=== PATIENT | female | born 1975 | race African-American/Black ===

== ENCOUNTER 2018-08-26 11:41 | Emergency (ER) | payer OTHER ==
[2018-08-26 12:11] VITALS: BP 119/70; PULSE 80; RESP 20; TEMP 98.1
--- NOTE | 2018-08-26 12:36 | ED ---
Female Urogenital HPI - General Chief complaint: Urogenital Stated complaint: female gu Time Seen by Provider: 08/26/18 12:15 Source: patient Mode of arrival: ambulatory Limitations: no limitations - History of Present Illness Initial comments: 43-year-old in today for chief complaint of vaginal discharge. Patient states she has had a follow-up vaginal discharge for the past month. Patient denies any pain with sex chest hear chills night sweats she denies any significant pelvic pain. Patient states she was concerned she had subsequent infection she states she is confident that is not a sexually transmitted disease. Patient denies . She denies dysuria urgency frequency. Patient states she feels as though as her external vagina is irritated. Remaining review of systems negative. - Related Data Previous Rx's Medication Instructions Recorded Cephalexin [Keflex] 500 mg PO Q6HR 7 Days #28 cap 08/26/18 metroNIDAZOLE [Flagyl] 2,000 mg PO ONCE 1 Days #4 tab 08/26/18 metroNIDAZOLE [metroNIDAZOLE 0.75% 1 applic TOPICAL HS 5 Days #1 tube 08/26/18 Gel] Allergies Allergy/AdvReac Type Severity Reaction Status Date / Time No Known Allergies Allergy Verified 08/26/18 12:20 Review of Systems ROS Statement: Those systems with pertinent positive or pertinent negative responses have been documented in the HPI. ROS Other: All systems not noted in ROS Statement are negative. Past Medical History Past Medical History: Asthma, GERD/Reflux, Thyroid Disorder Additional Past Medical History / Comment(s): scoliosis History of Any Multi-Drug Resistant Organisms: None Reported Past Surgical History: Tubal Ligation Additional Past Surgical History / Comment(s): D&C Past Psychological History: No Psychological Hx Reported Smoking Status: Current every day smoker Past Alcohol Use History: Occasional Past Drug Use History: None Reported General Exam - General Exam Comments Initial Comments: General: The patient is awake and alert, in no distress, and does not appear acutely ill. Eye: Pupils are equal, round and reactive to light, extra-ocular movements are intact. No nystagmus. There is normal conjunctiva bilaterally. No signs of icterus. Ears, nose, mouth and throat: There are moist mucous membranes and no oral lesions. Neck: The neck is supple, there is no tenderness or JVD. Cardiovascular: There is a regular rate and rhythm. No murmur, rub or gallop is appreciated. Respiratory: Lungs are clear to auscultation, respirations are non-labored, breath sounds are equal. No wheezes, stridor, rales, or rhonchi. Gastrointestinal: Soft, non-distended, non-tender abdomen without masses or organomegaly noted. There is no rebound or guarding present. No CVA tenderness. Bowel sounds are unremarkable. Pelvic: Upon pelvic examination there is no external lesions. Rash and close eyes pink with rugated. Significant amount of discharge in the vaginal vault. It has a foul order- fishy in nature. Patient is no cervical motion or adnexal tenderness. Musculoskeletal: Normal ROM, no tenderness. Strength 5/5. Sensation intact. Pulses equal bilaterally 2+. Neurological: A&O x 3. CN II-XII intact, There are no obvious motor or sensory deficits. Coordination appears grossly intact. Speech is normal. Skin: Skin is warm and dry and no rashes or lesions are noted. Psychiatric: Cooperative, appropriate mood & affect, normal judgment. Limitations: no limitations Course Vital Signs 08/26/18 12:08 Temperature 98.1 F Pulse Rate 80 Respiratory 20 Rate Blood Pressure 119/70 O2 Sat by Pulse 100 Oximetry Medical Decision Making - Medical Decision Making 43-year-old female presenting for foul smelling discharge. On examination there is profuse discharge. She and thin. Concern for bacterial vaginosis. Patient denies concern for STI. Patient had no adnexal or cervical motion tenderness. Patient denies any constitutional symptoms. Patient was discharged appearing well with treatment of her bacterial vaginosis. Trichomonas returned later positive. Patient was called I spoke directly with Kaylie and sent a prescripting for 2g of oral Flagyl 1x dose. Patient was told to discontinue local Flagyl. Patient chlamydia and gonorrhea pending. - Lab Data Lab Results 08/26/18 08/26/18 08/26/18 Range/Units 12:50 12:50 12:50 Urine Color Yellow Urine Appearance Cloudy H (Clear) Urine pH 5.5 (5.0-8.0) Ur Specific [place] 1.029 (1.001-1.035) Urine Protein Trace H (Negative) Urine Glucose (UA) Negative (Negative) Urine Ketones Negative (Negative) Urine Blood Negative (Negative) Urine Nitrite Negative (Negative) Urine Bilirubin Negative (Negative) Urine Urobilinogen 2.0 (<2.0) mg/dL Ur Leukocyte Esterase Large H (Negative) Urine RBC 17 H (0-5) /hpf Urine WBC 133 H (0-5) /hpf Urine WBC Clumps Few H (None) /hpf Ur Squamous Epith Cells 2 (0-4) /hpf Urine Bacteria Occasional H (None) /hpf Urine Mucus Few H (None) /hpf Urine HCG, Qual Not Detected (Not Detectd) Trichomonas Ag (Rapid) Positive H (Negative) Disposition Clinical Impression: Vaginitis, Vaginal discharge, Vaginal odor, Vaginal itching Disposition: HOME SELF-CARE Instructions (If sedation given, give patient instructions): Bacterial Vaginosis (ED) Additional Instructions: Please use medication as discussed. Please follow-up with family doctor in the next 2 days. Please return to emergency room if the symptoms increase or worsen or for any other concerns. Prescriptions: metroNIDAZOLE [Flagyl] 2,000 mg PO ONCE 1 Days #4 tab Cephalexin [Keflex] 500 mg PO Q6HR 7 Days #28 cap metroNIDAZOLE [metroNIDAZOLE 0.75% Gel] 1 applic TOPICAL HS 5 Days #1 tube Is patient prescribed a controlled substance at d/c from ED?: No Referrals: None,Stated [Primary Care Provider] - 1-2 days [facility] [NON-STAFF] - 1-2 days Time of Disposition: 12:35
[2018-08-26 13:23] LABS: Appearance,Urine Cloudy (Clear); Bacteria,Urine Occasional /hpf; Bilirubin,Urine Negative (Negative); Blood,Urine Negative (Negative); Color,Urine Yellow; Glucose,Urine (UA) Negative (Negative); Ketones,Urine Negative (Negative); Leukocyte Esterase,Urine Large (Negative); Mucus,Urine Few /hpf; Nitrite,Urine Negative (Negative); PH, Urine 5.5 (5.0-8.0); Protein,Urine Trace (Negative); RBC,Urine 17 /hpf (0-5); Specific Gravity,Urine 1.029 (1.001-1.035); Squamous Epithelial Cell,Urine 2 /hpf (0-4); WBC,Urine 133 /hpf (0-5)
[2018-08-27 15:57] LABS: C. trachomatis,PCR Negative (Neg,Equiv); Chlamydia trachomatis Source Vagina; N. gonorrhoeae,PCR Negative (Neg,Equiv); Neisseria Source Vagina
== END 2018-08-26 13:20 | disposition home or self-care (01) ==
LOC: EC 11:41
DX: N76.0 Acute vaginitis (principal); A59.01 Trichomonal vulvovaginitis; F17.200 Nicotine dependence, unspecified, uncomplicated; Z98.51 Tubal ligation status
CPT/HCPCS: 81001; 81025; 87070; 87205; 87491; 87591; 87808; 99283

== ENCOUNTER → 2018-11-06 | Outpatient (CLI) | payer OTHER ==
--- NOTE | 2018-11-06 11:14 | US ---
EXAMINATION TYPE: US abdomen complete DATE OF EXAM: 11/06/2018 COMPARISON: NONE CLINICAL HISTORY: R10.2 Pelvic and perineal pain. Abdominal pain for 1 year EXAM MEASUREMENTS: Liver Length: 13.3 cm Gallbladder Wall: 0.2 cm CBD: 0.5 cm Spleen: 7.1 cm Right Kidney: 9.2 x 3.0 x 5.0 cm Left Kidney: 9.7 x 4.5 x 4.1 cm Pancreas: visualized portions appear wnl Liver: wnl Gallbladder: no evidence of stones Evidence for sonographic Galloway's sign: no CBD: wnl Spleen: appears wnl Right Kidney: no evidence of hydronephrosis Left Kidney: no evidence of hydronephrosis Upper IVC: wnl Abd Aorta: wnl The visualized liver is homogenous. The intrahepatic portion of the IVC and visualized portion of ab dominal aorta are within normal limits. There is no evidence of cholelithiasis. Common bile duct is unremarkable. The visualized portions of the pancreas are homogenous. The spleen is unremarkable. Kidneys are symmetric and free of hydronephrosis. No renal lesions are seen. IMPRESSION: Unremarkable study.
--- NOTE | 2018-11-06 11:18 | US ---
EXAMINATION TYPE: US pelvis complete transvag DATE OF EXAM: 11/06/2018 COMPARISON: NONE CLINICAL HISTORY: R10.2 Pelvic and perineal pain. Abdominal pain for 1 year. Tubal ligation. Early me nopause, LMP 6 months ago TECHNIQUE: Transvaginal (TV) and Transabdominal (TA) . Transabdominal sonographic images of the pel vis were acquired. Transvaginal sonographic images were medically necessary to better assess the fol lowing anatomy: ovaries Date of LMP: 6 months ago EXAM MEASUREMENTS: Uterus: 6.9 x 5.3 x 6.0 cm Endometrial Stripe: 0.3 cm Right Ovary: unable to visualize Left Ovary: 2.5 x 1.6 x 1.6 cm 1. Uterus: Anteverted hypoechoic area (fibroid) fundus = 2.0 x 1.5 x 1.9cm 2. Endometrium: appears wnl 3. Right Ovary: Obscured by overlying bowel gas 4. Left Ovary: possible dominant follicle = 1.5 x 0.9 x 1.5cm 5. Bilateral Adnexa: appears wnl 6. Posterior cul-de-sac: wnl Heterogeneous anteverted uterus. A 2.1 cm posterior fundal intramural fibroid suspected. No free flui d in pelvis. Right ovary cannot be identified with certainty. No suspicious adnexal masses however are present. IMPRESSION: Probable 2.0 cm posterior fundal fibroid.
== END | disposition home or self-care (01) ==
LOC: RADUSWWP 08:40
PROVIDERS: ATTEND Family Medicine
DX: R10.2 Pelvic and perineal pain (principal); R10.30 Lower abdominal pain, unspecified
CPT/HCPCS: 76700; 76830; 76856

== ENCOUNTER 2018-12-22 13:32 | Emergency (ER) | payer OTHER ==
[2018-12-22 13:37] VITALS: BP 120/80; PULSE 79; RESP 18; TEMP 97.9
--- NOTE | 2018-12-22 14:00 | ED ---
Back Pain HPI - General Chief Complaint: Back Pain/Injury Stated Complaint: Back pain Time Seen by Provider: 12/22/18 13:38 Source: patient Limitations: no limitations - History of Present Illness Initial Comments: Patient is a 43-year-old female presenting to emergency Department with complaints of low back cramping and pain since yesterday. Patient has history of scoliosis. Patient denies any trauma or falls. Patient does see an orthopedic doctor, she cannot recall their name. Patient is awaiting a callback either tomorrow or Sunday. Patient states she has been trying to move around today and pain increases with sitting or getting up from a seated position. Patient denies any numbness and tingling, saddle paresthesia, trouble with urination or bowel movements. Patient has no other complaints at this time. Patient denies fever, chills. Upon arrival to ER vital signs are stable. - Related Data Previous Rx's Medication Instructions Recorded Cephalexin [Keflex] 500 mg PO Q6HR 7 Days #28 cap 08/26/18 metroNIDAZOLE [Flagyl] 2,000 mg PO ONCE 1 Days #4 tab 08/26/18 metroNIDAZOLE [metroNIDAZOLE 0.75% 1 applic TOPICAL HS 5 Days #1 tube 08/26/18 Gel] Cyclobenzaprine [Flexeril] 5 mg PO BID PRN #15 tablet 12/22/18 Allergies Allergy/AdvReac Type Severity Reaction Status Date / Time No Known Allergies Allergy Verified 12/22/18 13:37 Review of Systems ROS Statement: Those systems with pertinent positive or pertinent negative responses have been documented in the HPI. ROS Other: All systems not noted in ROS Statement are negative. Past Medical History Past Medical History: Asthma, GERD/Reflux, Thyroid Disorder Additional Past Medical History / Comment(s): scoliosis History of Any Multi-Drug Resistant Organisms: None Reported Past Surgical History: Tubal Ligation Additional Past Surgical History / Comment(s): D&C Past Psychological History: Depression Smoking Status: Current every day smoker Past Alcohol Use History: Occasional Past Drug Use History: Marijuana General Exam - General Exam Comments Initial Comments: GENERAL: Well-appearing, well-nourished and in no acute distress. HEAD: Atraumatic, normocephalic. EYES: Pupils equal round and reactive to light, extraocular movements intact, sclera anicteric, conjunctiva are normal. ENT: TMs normal, nares patent, oropharynx clear without exudates. Moist mucous membranes. NECK: Normal range of motion, supple without lymphadenopathy or JVD. LUNGS: Breath sounds clear to auscultation bilaterally and equal. No wheezes rales or rhonchi. HEART: Regular rate and rhythm without murmurs, rubs or gallops. ABDOMEN: Soft, nontender, normoactive bowel sounds. No guarding, no rebound. No masses appreciated. : Deferred EXTREMITIES: Normal range of motion, no pitting or edema. No clubbing or cyanosis. No pain with palpation of the lumbar spine or lumbar paraspinals. Patient has normal junk range of motion. Sensation is equal and bilateral. Strength is 5 out of 5 and lower extremity. NEUROLOGICAL: Cranial nerves II through XII grossly intact. Normal speech, normal gait. PSYCH: Normal mood, normal affect. SKIN: Warm, Dry, normal turgor, no rashes or lesions noted. Limitations: no limitations Course Vital Signs 12/22/18 13:34 Temperature 97.9 F Pulse Rate 79 Respiratory 18 Rate Blood Pressure 120/80 O2 Sat by Pulse 99 Oximetry Medical Decision Making - Medical Decision Making Patient is a 43-year-old female presenting with low back pain times one day. Patient has history of scoliosis. Patient denies trauma or injury to her back. Patient describes the pain as tightness. No numbness and tingling into her lower extremities. On exam patient has no pain with palpation of the lumbar spine or lumbar paraspinals. Sensation is equal in bilateral lower extremities. Strength is 5 out of 5. Discussed with patient this is most likely muscle spasms. Patient will be discharged home with trial of muscle relaxer. Patient will take Tylenol as needed for pain. Patient will follow up with her orthopedic doctor next week. Patient is agreement with this plan of care. Return parameters were discussed with the patient she verbalized understanding. Disposition Clinical Impression: Mechanical back pain Disposition: HOME SELF-CARE Condition: Stable Instructions (If sedation given, give patient instructions): Acute Low Back Pain (ED) Additional Instructions: Please return to the Emergency Department if symptoms worsen or any other concerns. Follow-up with orthopedics as discussed. Prescriptions: Cyclobenzaprine [Flexeril] 5 mg PO BID PRN #15 tablet PRN Reason: Muscle Spasm Is patient prescribed a controlled substance at d/c from ED?: No Referrals: Giana Crowe MD [Primary Care Provider] - 1-2 days
== END 2018-12-22 14:05 | disposition home or self-care (01) ==
LOC: EC 13:32
DX: M54.5 Low back pain (principal); F17.200 Nicotine dependence, unspecified, uncomplicated; Z87.39 Personal history of other diseases of the musculoskeletal system and connective tissue
CPT/HCPCS: 99283

== ENCOUNTER → 2019-02-11 | Outpatient (CLI) | payer OTHER ==
--- NOTE | 2019-02-11 16:09 | US ---
EXAMINATION TYPE: US transvaginal DATE OF EXAM: 02/11/2019 COMPARISON: 11/06/2018 CLINICAL HISTORY: R10.2 PELVIC AND PERINEAL PAIN. Pelvic pain and pressure for 2 weeks TECHNIQUE: Transvaginal (TV). Date of LMP: > 1 year ago EXAM MEASUREMENTS: Uterus: 7.1 x 4.2 x 4.9 cm Endometrial Stripe: 0.3 cm Right Ovary: unable to visualize Left Ovary: unable to visualize 1. Uterus: Anteverted heterogeneous, at least one probable leiomyoma measuring 2.1 x 1.5 x 1.7cm p osterior fundus 2. Endometrium: limited evaluation, appears wnl 3. Right Ovary: Obscured by overlying bowel gas 4. Left Ovary: Obscured by overlying bowel gas 5. Bilateral Adnexa: appears wnl 6. Posterior cul-de-sac: wnl IMPRESSION: 1. Heterogenous myometrium with at least one well-circumscribed probable leiomyoma measuring up to 2. 1 cm, intramural. 2. Limited evaluation of the endometrium due to myometrial heterogeneity. 3. Obscuration of the bilateral ovaries and nonvisualization.
== END | disposition home or self-care (01) ==
LOC: RADUSWWP 15:20
PROVIDERS: ATTEND Obstetrics & Gynecology
DX: R10.2 Pelvic and perineal pain (principal)
CPT/HCPCS: 76830

== ENCOUNTER → 2019-02-25 | Outpatient (CLI) | payer OTHER ==
--- NOTE | 2019-02-26 07:43 | US ---
EXAMINATION TYPE: US extremity nonvasc mass LT DATE OF EXAM: 02/25/2019 COMPARISON: NONE CLINICAL HISTORY: M71.332 bursal cyst, left wrist, M25.432 M25.532. TECHNIQUE/FINDINGS: Targeted ultrasound was performed of the left wrist in the area of the palpable a bnormality utilizing grayscale and color imaging. Patient has obvious palpable mass medial anterior wrist per the shed workers supervisor. This area appears to be osseous on ultrasound. Medial to palpable area is an anechoic area cystic lesion measuring 1.3 x 0.6 x 0.8cm. No subcutaneous edema. No additional lesions seen. IMPRESSION: 1. Palpable abnormality appears to correspond to an osseous structure of the left wrist. X-ray could assess for osseous lesion or bony exostosis. 2. Medial to the palpable lesion there is a cystic mass measuring 1.3 cm, most commonly a ganglion cy st at this location. MRI could assess the relationship with the tendons of the wrist.
== END | disposition home or self-care (01) ==
LOC: RADUSWWP 15:35
PROVIDERS: ATTEND Nurse Practitioner Family
DX: M67.432 Ganglion, left wrist (principal)

== ENCOUNTER 2019-05-03 05:24 | Emergency (ER) | payer OTHER ==
[2019-05-03 05:37] VITALS: PULSE 60; TEMP 97.6
[2019-05-03] MEDS ORDERED: SODIUM CHLORIDE 0.9% 1,000 ML IV STA (05:37)
--- NOTE | 2019-05-03 05:38 | ED ---
Abdominal Pain HPI - General Chief Complaint: Abdominal Pain Stated Complaint: Abdominal Pain Time Seen by Provider: 05/03/19 05:37 Source: patient, RN notes reviewed, old records reviewed Mode of arrival: ambulatory Limitations: no limitations - History of Present Illness Initial Comments: This is a 43-year-old female DF for evaluation she presents for evaluation regards to abdominal pain left lower quadrant abdominal pain left pubic pain. Patient has history of a couple D&Cs. She also has tubal ligation patient denies chance of no bleeding or vaginal discharge. Pain and symptoms 1 month. Normal bowel movements no fevers no travel history no history of colonoscopy or surgery otherwise MD Complaint: abdominal pain (Left lower quadrant) -: month(s) Location: LLQ, suprapubic Radiation: LLQ Migration to: LLQ Severity: moderate Severity scale (1-10): 4 Quality: cramping, aching Consistency: constant Improves With: nothing Worsens With: nothing Associated Symptoms: denies other symptoms - Related Data Previous Rx's Medication Instructions Recorded Cephalexin [Keflex] 500 mg PO Q6HR 7 Days #28 cap 08/26/18 metroNIDAZOLE [Flagyl] 2,000 mg PO ONCE 1 Days #4 tab 08/26/18 metroNIDAZOLE [metroNIDAZOLE 0.75% 1 applic TOPICAL HS 5 Days #1 tube 08/26/18 Gel] Cyclobenzaprine [Flexeril] 5 mg PO BID PRN #15 tablet 12/22/18 Allergies Allergy/AdvReac Type Severity Reaction Status Date / Time No Known Allergies Allergy Verified 12/22/18 13:37 Review of Systems ROS Statement: Those systems with pertinent positive or pertinent negative responses have been documented in the HPI. ROS Other: All systems not noted in ROS Statement are negative. Past Medical History Past Medical History: Asthma, GERD/Reflux, Thyroid Disorder Additional Past Medical History / Comment(s): scoliosis History of Any Multi-Drug Resistant Organisms: None Reported Past Surgical History: Tubal Ligation Additional Past Surgical History / Comment(s): D&C Past Psychological History: Depression Smoking Status: Former smoker Past Alcohol Use History: Occasional Past Drug Use History: Marijuana General Exam Limitations: no limitations General appearance: alert, in no apparent distress Head exam: Present: atraumatic, normocephalic, normal inspection Eye exam: Present: normal appearance, PERRL, EOMI. Absent: scleral icterus, conjunctival injection, periorbital swelling ENT exam: Present: normal exam, mucous membranes moist Neck exam: Present: normal inspection. Absent: tenderness, meningismus, lymphadenopathy Respiratory exam: Present: normal lung sounds bilaterally. Absent: respiratory distress, wheezes, rales, rhonchi, stridor Cardiovascular Exam: Present: regular rate, normal rhythm, normal heart sounds. Absent: systolic murmur, diastolic murmur, rubs, gallop, clicks GI/Abdominal exam: Present: soft, tenderness (Left low-quadrant), normal bowel sounds. Absent: distended, guarding, rebound, rigid Extremities exam: Present: normal inspection, full ROM, normal capillary refill. Absent: tenderness, pedal edema, joint swelling, calf tenderness Back exam: Present: normal inspection Neurological exam: Present: alert, oriented X3, CN II-XII intact Psychiatric exam: Present: normal affect, normal mood Skin exam: Present: warm, dry, intact, normal color. Absent: rash Course Vital Signs 05/03/19 05/03/19 05:35 07:36 Temperature 97.6 F Pulse Rate 60 60 Respiratory 16 17 Rate Blood Pressure 94/66 101/70 O2 Sat by Pulse 99 98 Oximetry - Reevaluation(s) Reevaluation #1: 05/03/19 06:32 Medical records reviewed Medical Decision Making - Medical Decision Making 43 female with nonspecific abdominal pain. CT pelvis is negative for acute disease patient can be discharged home - Lab Data Result diagrams: 05/03/19 06:00 05/03/19 06:00 Lab Results 05/03/19 05/03/19 05/03/19 Range/Units 06:00 06:00 06:00 WBC 3.1 L (3.8-10.6) k/uL RBC 4.54 (3.80-5.40) m/uL Hgb 15.0 (11.4-16.0) gm/dL Hct 44.8 (34.0-46.0) % MCV 98.7 (80.0-100.0) fL MCH 32.9 (25.0-35.0) pg MCHC 33.4 (31.0-37.0) g/dL RDW 13.0 (11.5-15.5) % Plt Count 255 (150-450) k/uL Neutrophils % 34 % Lymphocytes % 54 % Monocytes % 4 % Eosinophils % 5 % Basophils % 2 % Neutrophils # 1.1 L (1.3-7.7) k/uL Lymphocytes # 1.7 (1.0-4.8) k/uL Monocytes # 0.1 (0-1.0) k/uL Eosinophils # 0.2 (0-0.7) k/uL Basophils # 0.1 (0-0.2) k/uL Sodium 139 (137-145) mmol/L Potassium 4.2 (3.5-5.1) mmol/L Chloride 102 (98-107) mmol/L Carbon Dioxide 31 H (22-30) mmol/L Anion Gap 6 mmol/L BUN 6 L (7-17) mg/dL Creatinine 0.69 (0.52-1.04) mg/dL Est GFR (CKD-EPI)AfAm >90 (>60 ml/min/1.73 sqM) Est GFR (CKD-EPI)NonAf >90 (>60 ml/min/1.73 sqM) Glucose 95 (74-99) mg/dL Plasma Lactic Acid [place] (0.7-2.0) mmol/L Calcium 9.4 (8.4-10.2) mg/dL Total Bilirubin 0.7 (0.2-1.3) mg/dL AST 28 (14-36) U/L ALT 14 (4-34) U/L Alkaline Phosphatase 46 (38-126) U/L Troponin I (0.000-0.034) ng/mL Total Protein 7.2 (6.3-8.2) g/dL Albumin 4.3 (3.5-5.0) g/dL Amylase 89 (30-110) U/L Lipase 70 (23-300) U/L Urine Color Urine Appearance (Clear) Urine pH (5.0-8.0) Ur Specific [place] (1.001-1.035) Urine Protein (Negative) Urine Glucose (UA) (Negative) Urine Ketones (Negative) Urine Blood (Negative) Urine Nitrite (Negative) Urine Bilirubin (Negative) Urine Urobilinogen (<2.0) mg/dL Ur Leukocyte Esterase (Negative) Urine RBC (0-5) /hpf Urine WBC (0-5) /hpf Ur Squamous Epith Cells (0-4) /hpf Urine Mucus (None) /hpf Urine HCG, Qual Not Detected (Not Detectd) 05/03/19 05/03/19 05/03/19 Range/Units 06:00 06:00 06:00 WBC (3.8-10.6) k/uL RBC (3.80-5.40) m/uL Hgb (11.4-16.0) gm/dL Hct (34.0-46.0) % MCV (80.0-100.0) fL MCH (25.0-35.0) pg MCHC (31.0-37.0) g/dL RDW (11.5-15.5) % Plt Count (150-450) k/uL Neutrophils % % Lymphocytes % % Monocytes % % Eosinophils % % Basophils % % Neutrophils # (1.3-7.7) k/uL Lymphocytes # (1.0-4.8) k/uL Monocytes # (0-1.0) k/uL Eosinophils # (0-0.7) k/uL Basophils # (0-0.2) k/uL Sodium (137-145) mmol/L Potassium (3.5-5.1) mmol/L Chloride (98-107) mmol/L Carbon Dioxide (22-30) mmol/L Anion Gap mmol/L BUN (7-17) mg/dL Creatinine (0.52-1.04) mg/dL Est GFR (CKD-EPI)AfAm (>60 ml/min/1.73 sqM) Est GFR (CKD-EPI)NonAf (>60 ml/min/1.73 sqM) Glucose (74-99) mg/dL Plasma Lactic Acid [place] 1.2 (0.7-2.0) mmol/L Calcium (8.4-10.2) mg/dL Total Bilirubin (0.2-1.3) mg/dL AST (14-36) U/L ALT (4-34) U/L Alkaline Phosphatase (38-126) U/L Troponin I <0.012 (0.000-0.034) ng/mL Total Protein (6.3-8.2) g/dL Albumin (3.5-5.0) g/dL Amylase (30-110) U/L Lipase (23-300) U/L Urine Color Yellow Urine Appearance Cloudy H (Clear) Urine pH 5.5 (5.0-8.0) Ur Specific [place] 1.015 (1.001-1.035) Urine Protein Negative (Negative) Urine Glucose (UA) Negative (Negative) Urine Ketones Negative (Negative) Urine Blood Negative (Negative) Urine Nitrite Negative (Negative) Urine Bilirubin Negative (Negative) Urine Urobilinogen <2.0 (<2.0) mg/dL Ur Leukocyte Esterase Trace H (Negative) Urine RBC 1 (0-5) /hpf Urine WBC 2 (0-5) /hpf Ur Squamous Epith Cells 59 H (0-4) /hpf Urine Mucus Moderate H (None) /hpf Urine HCG, Qual (Not Detectd) - Radiology Data Radiology results: report reviewed (CT of the abdomen and pelvis is negative for acute disease), image reviewed Disposition Clinical Impression: Abdominal pain Disposition: HOME SELF-CARE Condition: Good Instructions (If sedation given, give patient instructions): Abdominal Pain (ED) Is patient prescribed a controlled substance at d/c from ED?: No Referrals: Nonstaff,Physician [REFERRING] - 1-2 days
[2019-05-03 06:15] LABS: Basophils # (A) 0.1 k/uL (0-0.2); Basophils % (A) 2 %; Eosinophils # (A) 0.2 k/uL (0-0.7); Eosinophils % (A) 5 %; HCT 44.8 % (34.0-46.0); Lymphocytes # (A) 1.7 k/uL (1.0-4.8); Lymphocytes % (A) 54 %; MCH 32.9 pg (25.0-35.0); MCHC 33.4 g/dL (31.0-37.0); MCV 98.7 fL (80.0-100.0); Mean Platelet Volume 8.4; Monocytes # (A) 0.1 k/uL (0-1.0); Monocytes % (A) 4 %; Neutrophils # (A) 1.1 k/uL (1.3-7.7); Neutrophils % (A) 34 %; Platelet Count 255 k/uL (150-450); RBC 4.54 m/uL (3.80-5.40); WBC 3.1 k/uL (3.8-10.6)
[2019-05-03 06:20] LABS: Appearance,Urine Cloudy (Clear); Bilirubin,Urine Negative (Negative); Blood,Urine Negative (Negative); Color,Urine Yellow; Glucose,Urine (UA) Negative (Negative); Ketones,Urine Negative (Negative); Leukocyte Esterase,Urine Trace (Negative); Mucus,Urine Moderate /hpf; Nitrite,Urine Negative (Negative); PH, Urine 5.5 (5.0-8.0); Protein,Urine Negative (Negative); RBC,Urine 1 /hpf (0-5); Specific Gravity,Urine 1.015 (1.001-1.035); Squamous Epithelial Cell,Urine 59 /hpf (0-4); Urobilinogen,Urine <2.0 mg/dL (<2.0); WBC,Urine 2 /hpf (0-5)
[2019-05-03 06:24] LABS: ALT 14 U/L (4-34); AST 28 U/L (14-36); African American GFR (CKD) >90 (>60 ml/min/1.73 sqM); Albumin 4.3 g/dL (3.5-5.0); Alkaline Phosphatase 46 U/L (38-126); Amylase 89 U/L (30-110); Anion Gap 6 mmol/L; Blood Urea Nitrogen 6 mg/dL (7-17); Calcium 9.4 mg/dL (8.4-10.2); Carbon Dioxide 31 mmol/L (22-30); Chloride 102 mmol/L (98-107); Glucose 95 mg/dL (74-99); Non-African American GFR(CKD) >90 (>60 ml/min/1.73 sqM); Potassium 4.2 mmol/L (3.5-5.1); Sodium 139 mmol/L (137-145); Total Bilirubin 0.7 mg/dL (0.2-1.3); Total Protein 7.2 g/dL (6.3-8.2)
--- NOTE | 2019-05-03 06:58 | CT ---
EXAMINATION TYPE: CT abdomen pelvis w con DATE OF EXAM: 05/03/2019 COMPARISON: None HISTORY: LLQ pain CT DLP: 511.4 mGycm Automated exposure control for dose reduction was used. CONTRAST: Performed with IV Contrast, patient injected with 100 mL of Isovue 300. Multiple axial sections were obtained from the diaphragm to the floor the pelvis with intravenous con trast. Lung bases are clear. There is no pleural effusion. Heart appears normal. There is no pericardial eff usion. Liver spleen pancreas gallbladder appear normal. Bile ducts are not dilated. Stomach appears normal. There is no adrenal mass. Kidneys show satisfactory contrast opacification. There is no hydronephrosi s. Uterus is retroverted. There is no free fluid in the pelvis. Bladder distends smoothly. There is n o inguinal hernia. There is no mesenteric edema. There is no ascites or free air. There is no sign of a bowel obstructio n. Lumbar vertebra have normal spacing. There is slight thoracolumbar levoscoliosis. Bony pelvis is inta ct. Appendix is seen and is normal. Appendix is posterior. There is 2 cm cyst on the left ovary. IMPRESSION: Normal appendix. Cyst on the left ovary. No sign of acute abdomen and pelvis.
[2019-05-03 07:37] VITALS: BP 101/70; RESP 17
== END 2019-05-03 07:38 | disposition home or self-care (01) ==
LOC: EC 05:24
DX: R10.32 Left lower quadrant pain (principal); Z98.51 Tubal ligation status; Z87.891 Personal history of nicotine dependence
CPT/HCPCS: 36415; 80053; 82150; 83605; 83690; 84484; 85025; 81001; 81025; 74177; 99284; 96360; Q9967

== ENCOUNTER 2019-05-23 04:14 | Emergency (ER) | payer OTHER ==
[2019-05-23 04:21] VITALS: BP 111/77; PULSE 100; RESP 18; TEMP 98.2
[2019-05-23] MEDS ORDERED: KETOROLAC 30 MG/ML 1 ML VIAL IVP STA (04:29)
[2019-05-23] MEDS ORDERED: SODIUM CHLORIDE 0.9% 1,000 ML IV STA (04:29)
[2019-05-23 04:57] LABS: Basophils % (A) 1 %; Eosinophils # (A) 0.2 k/uL (0-0.7); Eosinophils % (A) 8 %; HCT 44.3 % (34.0-46.0); Lymphocytes # (A) 1.4 k/uL (1.0-4.8); Lymphocytes % (A) 49 %; MCH 31.6 pg (25.0-35.0); MCHC 31.6 g/dL (31.0-37.0); MCV 99.9 fL (80.0-100.0); Mean Platelet Volume 7.7; Monocytes # (A) 0.1 k/uL (0-1.0); Monocytes % (A) 3 %; Neutrophils % (A) 37 %; Platelet Count 257 k/uL (150-450); RBC 4.44 m/uL (3.80-5.40); RDW 12.4 % (11.5-15.5); WBC 2.8 k/uL (3.8-10.6)
--- NOTE | 2019-05-23 05:05 | XR ---
EXAMINATION TYPE: XR KUB DATE OF EXAM: 05/23/2019 COMPARISON: NONE HISTORY: Abdominal pain TECHNIQUE: Single view FINDINGS: Single view upright shows a normal bowel gas pattern. There is no sign of intestinal obstru ction or pneumoperitoneum. Fecal pattern is fairly normal. Lung bases are clear. There are no patholo gic calcifications. There is slight lumbar levoscoliosis. IMPRESSION: Nonacute abdomen.
[2019-05-23 05:20] LABS: ALT 30 U/L (4-34); AST 43 U/L (14-36); African American GFR (CKD) >90 (>60 ml/min/1.73 sqM); Alkaline Phosphatase 58 U/L (38-126); Anion Gap 5 mmol/L; Blood Urea Nitrogen 10 mg/dL (7-17); Calcium 9.2 mg/dL (8.4-10.2); Carbon Dioxide 27 mmol/L (22-30); Chloride 104 mmol/L (98-107); Glucose 98 mg/dL (74-99); Non-African American GFR(CKD) 85 (>60 ml/min/1.73 sqM); Potassium 4.1 mmol/L (3.5-5.1); Sodium 136 mmol/L (137-145); Total Bilirubin 0.6 mg/dL (0.2-1.3); Total Protein 6.9 g/dL (6.3-8.2)
[2019-05-23 05:28] LABS: Appearance,Urine Clear (Clear); Bilirubin,Urine Negative (Negative); Blood,Urine Negative (Negative); Color,Urine Light Yellow; Glucose,Urine (UA) Negative (Negative); Ketones,Urine Negative (Negative); Leukocyte Esterase,Urine Negative (Negative); Nitrite,Urine Negative (Negative); PH, Urine 7.5 (5.0-8.0); Protein,Urine Negative (Negative); Specific Gravity,Urine 1.003 (1.001-1.035); Urobilinogen,Urine <2.0 mg/dL (<2.0)
[2019-05-23 06:04] LABS: Anisocytosis (M) Present; Polychromasia Present
--- NOTE | 2019-05-23 06:15 | ED ---
Abdominal Pain HPI - General Chief Complaint: Abdominal Pain Stated Complaint: Abd/Pelvic Time Seen by Provider: 05/23/19 04:24 Source: patient, EMS Mode of arrival: EMS Limitations: no limitations - History of Present Illness Initial Comments: Patient is a 43-year-old female presents the ER today for evaluation of pelvic pain. Patient reports she has been dealing with pelvic pain for couple of years but it's been worse in the past couple of months she has seen her primary care physician as well as her software sales executive, she cannot recall her software sales executive name but states that it's a male in his office is her street. Patient reports that she saw her software sales executive last week her pelvic exam, was swabbed for sexually transmitted infections and advised that she needs to follow-up for pessary fitting for treatment of pelvic prolapse. Patient states that today she woke up early and felt comfortable laying in bed but when she sat up at her computer she felt pressure in her pelvis is very uncomfortable which prompted her to call EMS for transport to the hospital. Upon my evaluation patient is resting comfortably bed reports her pain has res olved. - Related Data Previous Rx's Medication Instructions Recorded Cephalexin [Keflex] 500 mg PO Q6HR 7 Days #28 cap 08/26/18 metroNIDAZOLE [Flagyl] 2,000 mg PO ONCE 1 Days #4 tab 08/26/18 metroNIDAZOLE [metroNIDAZOLE 0.75% 1 applic TOPICAL HS 5 Days #1 tube 08/26/18 Gel] Cyclobenzaprine [Flexeril] 5 mg PO BID PRN #15 tablet 12/22/18 Allergies Allergy/AdvReac Type Severity Reaction Status Date / Time No Known Allergies Allergy Verified 05/23/19 04:20 Review of Systems ROS Statement: Those systems with pertinent positive or pertinent negative responses have been documented in the HPI. ROS Other: All systems not noted in ROS Statement are negative. Past Medical History Past Medical History: Asthma, GERD/Reflux, Thyroid Disorder Additional Past Medical History / Comment(s): scoliosis History of Any Multi-Drug Resistant Organisms: None Reported Past Surgical History: Tubal Ligation Additional Past Surgical History / Comment(s): D&C Past Psychological History: Depression Smoking Status: Former smoker Past Alcohol Use History: Occasional Past Drug Use History: Marijuana General Exam - General Exam Comments Initial Comments: Physical Exam GENERAL: Patient is well-developed and well-nourished. Patient is nontoxic and well- hydrated and is in no distress. HENT: Normocephalic, Atraumatic. EYES: PERRL, EOMI PULMONARY: Unlabored respirations. No audible rales rhonchi or wheezing was noted. CARDIOVASCULAR: There is a regular rate and rhythm without any murmurs gallops or rubs. ABDOMEN: Soft and nontender with normal bowel sounds. SKIN: Skin is clear with no lesions or rashes and otherwise unremarkable. : Normal External genitalia Pelvic exam with no acute abnormality, no vaginal discharge, vaginal lacerations, no injury to the cervix NEUROLOGIC: Patient is alert and oriented x3. Moving all extremities spontaneously MUSCULOSKELETAL: Normal extremities with adequate strength and full range of motion. No lower extremity swelling or edema. No calf tenderness. PSYCHIATRIC: Normal psychiatric evaluation. Limitations: no limitations Course Vital Signs 05/23/19 04:17 Temperature 98.2 F Pulse Rate 100 Respiratory 18 Rate Blood Pressure 111/77 O2 Sat by Pulse 100 Oximetry Medical Decision Making - Medical Decision Making Patient was seen and evaluated history is obtained from the patient, history and physical exam were relatively unremarkable patient does have fibroid uterus, has had small cysts in the past and is currently being fitted for a pessary due to prolapse. Upon my evaluation patient is pain-free resting comfortably. Pelvic exam was unremarkable. Labs are unremarkable, urine no evidence of UTI. At this time patient comfortable with plan for discharge home continued outpatient follow-up with her software sales executive. All questions pertaining care were answered return parameters were discussed and the patient was discharged home in stable condition. - Lab Data Result diagrams: 05/23/19 04:41 05/23/19 04:41 Lab Results 05/23/19 05/23/19 05/23/19 Range/Units 04:41 04:41 05:20 WBC 2.8 L (3.8-10.6) k/uL RBC 4.44 (3.80-5.40) m/uL Hgb 14.0 (11.4-16.0) gm/dL Hct 44.3 (34.0-46.0) % MCV 99.9 (80.0-100.0) fL MCH 31.6 (25.0-35.0) pg MCHC 31.6 (31.0-37.0) g/dL RDW 12.4 (11.5-15.5) % Plt Count 257 (150-450) k/uL Neutrophils % 37 % Lymphocytes % 49 % Monocytes % 3 % Eosinophils % 8 % Basophils % 1 % Neutrophils # 1.0 L (1.3-7.7) k/uL Lymphocytes # 1.4 (1.0-4.8) k/uL Monocytes # 0.1 (0-1.0) k/uL Eosinophils # 0.2 (0-0.7) k/uL Basophils # 0.0 (0-0.2) k/uL Manual Slide Review Performed Polychromasia Present Anisocytosis (manual) Present Sodium 136 L (137-145) mmol/L Potassium 4.1 (3.5-5.1) mmol/L Chloride 104 (98-107) mmol/L Carbon Dioxide 27 (22-30) mmol/L Anion Gap 5 mmol/L BUN 10 (7-17) mg/dL Creatinine 0.84 (0.52-1.04) mg/dL Est GFR (CKD-EPI)AfAm >90 (>60 ml/min/1.73 sqM) Est GFR (CKD-EPI)NonAf 85 (>60 ml/min/1.73 sqM) Glucose 98 (74-99) mg/dL Calcium 9.2 (8.4-10.2) mg/dL Total Bilirubin 0.6 (0.2-1.3) mg/dL AST 43 H (14-36) U/L ALT 30 (4-34) U/L Alkaline Phosphatase 58 (38-126) U/L Total Protein 6.9 (6.3-8.2) g/dL Albumin 4.0 (3.5-5.0) g/dL Lipase 51 (23-300) U/L Urine Color Light Yellow Urine Appearance Clear (Clear) Urine pH 7.5 (5.0-8.0) Ur Specific [place] 1.003 (1.001-1.035) Urine Protein Negative (Negative) Urine Glucose (UA) Negative (Negative) Urine Ketones Negative (Negative) Urine Blood Negative (Negative) Urine Nitrite Negative (Negative) Urine Bilirubin Negative (Negative) Urine Urobilinogen <2.0 (<2.0) mg/dL Ur Leukocyte Esterase Negative (Negative) Disposition Clinical Impression: Pelvic pain Disposition: HOME SELF-CARE Condition: Stable Instructions (If sedation given, give patient instructions): Pelvic Pain in Women (ED) Is patient prescribed a controlled substance at d/c from ED?: No Referrals: Giana Crowe MD [Primary Care Provider] - 1-2 days
== END 2019-05-23 06:42 | disposition home or self-care (01) ==
LOC: EC 04:14
DX: R10.2 Pelvic and perineal pain (principal); Z87.891 Personal history of nicotine dependence
CPT/HCPCS: 36415; 80053; 83690; 85025; 81003; 74018; 99284; 96374; 96361; J1885

== ENCOUNTER 2019-07-30 08:41 | Emergency (ER) | payer OTHER ==
[2019-07-30 08:47] VITALS: BP 133/85; PULSE 97; RESP 18; TEMP 97.7
[2019-07-30] MEDS ORDERED: ACET/COD 300 MG/30 MG STARTER PACK 6 TAB BTL PO STA (08:53)
--- NOTE | 2019-07-30 08:54 | ED ---
ENT HPI - General Chief complaint: Dental/Oral Stated complaint: dental abscess Time Seen by Provider: 07/30/19 08:49 Source: patient, RN notes reviewed Mode of arrival: ambulatory Limitations: no limitations - History of Present Illness Initial comments: This a 44-year-old female presents emergency Department chief complaint of dental pain. Patient states that she has no abscess and states that she was is in Motrin, compresses states that it seemed to go away but now has swelling along her lower jawline. She has no loose dentition no specific tooth that is bothering her. Patient states that the dog is tender with palpation. No fevers or chills no trismus. Denies any headache, dizziness, neck pain or neck stiffness. No difficulty swallowing. - Related Data Previous Rx's Medication Instructions Recorded Cephalexin [Keflex] 500 mg PO Q6HR 7 Days #28 cap 08/26/18 metroNIDAZOLE [Flagyl] 2,000 mg PO ONCE 1 Days #4 tab 08/26/18 metroNIDAZOLE [metroNIDAZOLE 0.75% 1 applic TOPICAL HS 5 Days #1 tube 08/26/18 Gel] Cyclobenzaprine [Flexeril] 5 mg PO BID PRN #15 tablet 12/22/18 Penicillin V Potassium [Pen Vee K] 500 mg PO QID #40 tablet 07/30/19 Allergies Allergy/AdvReac Type Severity Reaction Status Date / Time No Known Allergies Allergy Verified 05/23/19 04:20 Review of Systems ROS Statement: Those systems with pertinent positive or pertinent negative responses have been documented in the HPI. ROS Other: All systems not noted in ROS Statement are negative. Past Medical History Past Medical History: Asthma, GERD/Reflux, Thyroid Disorder Additional Past Medical History / Comment(s): scoliosis History of Any Multi-Drug Resistant Organisms: None Reported Past Surgical History: Tubal Ligation Additional Past Surgical History / Comment(s): D&C Past Psychological History: Depression Smoking Status: Former smoker Past Alcohol Use History: Occasional Past Drug Use History: Marijuana General Exam Limitations: no limitations General appearance: alert, in no apparent distress Head exam: Present: atraumatic, normocephalic, normal inspection Eye exam: Present: normal appearance, PERRL, EOMI. Absent: scleral icterus, conjunctival injection, periorbital swelling ENT exam: Present: mucous membranes moist, TM's normal bilaterally, normal external ear exam. Absent: normal oropharynx (No obvious drainable abscess, there is tenderness along the left lower jawline, no trismus) Neck exam: Present: normal inspection, full ROM. Absent: tenderness, meningismus, lymphadenopathy Respiratory exam: Present: normal lung sounds bilaterally. Absent: respiratory distress, wheezes, rales, rhonchi, stridor Cardiovascular Exam: Present: regular rate, normal rhythm, normal heart sounds. Absent: systolic murmur, diastolic murmur, rubs, gallop, clicks Course Vital Signs 07/30/19 08:42 Temperature 97.7 F Pulse Rate 97 Respiratory 18 Rate Blood Pressure 133/85 O2 Sat by Pulse 96 Oximetry Medical Decision Making - Medical Decision Making Patient present for left lower dental pain. This is related to underlying dental infection no drainable abscess. We discussed that she needs to have close follow-up and strict return parameters. Patient agrees to plan patient placed on antibiotics. Disposition Clinical Impression: Dental infection Disposition: HOME SELF-CARE Condition: Stable Instructions (If sedation given, give patient instructions): Dental Abscess (ED) Additional Instructions: Please return to the Emergency Department if symptoms worsen or any other concerns. Prescriptions: Penicillin V Potassium [Pen Vee K] 500 mg PO QID #40 tablet Is patient prescribed a controlled substance at d/c from ED?: No Referrals: Giana Crowe MD [Primary Care Provider] - 1-2 days Time of Disposition: 08:54
== END 2019-07-30 09:14 | disposition home or self-care (01) ==
LOC: EC 08:41
DX: K04.7 Periapical abscess without sinus (principal); Z87.891 Personal history of nicotine dependence
CPT/HCPCS: 99282

== ENCOUNTER 2019-08-23 06:27 | Emergency (ER) | payer OTHER ==
[2019-08-23 06:38] VITALS: TEMP 97.6
--- NOTE | 2019-08-23 07:02 | ED ---
General Adult HPI - General Chief complaint: Vaginal Bleeding Stated complaint: irregular bleeding Time Seen by Provider: 08/23/19 06:43 Source: patient, RN notes reviewed Mode of arrival: ambulatory Limitations: no limitations - History of Present Illness Initial comments: This is a 44-year-old female presents emergency Department chief complaint of ab normal vaginal bleeding. Patient states that she has not had a period in 3 years was told that she had early onset of menopause. Patient states that she was offered hormones at that time. Patient states she declined. Patient states that she has had some very dark spotting when she wipes over the last couple days. Patient states she had some slight cramping but denies any bowel changes including diarrhea constipation no melena hematochezia. Denies any dysuria hematuria no fevers or chills. Patient's had a prior tubal ligation and D&C. Patient states that she does have a history of hyperthyroidism but does not take any current medications. - Related Data Previous Rx's Medication Instructions Recorded Cephalexin [Keflex] 500 mg PO Q6HR 7 Days #28 cap 08/26/18 metroNIDAZOLE [Flagyl] 2,000 mg PO ONCE 1 Days #4 tab 08/26/18 metroNIDAZOLE [metroNIDAZOLE 0.75% 1 applic TOPICAL HS 5 Days #1 tube 08/26/18 Gel] Cyclobenzaprine [Flexeril] 5 mg PO BID PRN #15 tablet 12/22/18 Penicillin V Potassium [Pen Vee K] 500 mg PO QID #40 tablet 07/30/19 Allergies Allergy/AdvReac Type Severity Reaction Status Date / Time No Known Allergies Allergy Verified 08/23/19 06:38 Review of Systems ROS Statement: Those systems with pertinent positive or pertinent negative responses have been documented in the HPI. ROS Other: All systems not noted in ROS Statement are negative. Past Medical History Past Medical History: Asthma, GERD/Reflux, Thyroid Disorder Additional Past Medical History / Comment(s): scoliosis History of Any Multi-Drug Resistant Organisms: None Reported Past Surgical History: Tubal Ligation Additional Past Surgical History / Comment(s): D&C Past Psychological History: Depression Smoking Status: Former smoker Past Alcohol Use History: Occasional Past Drug Use History: Marijuana General Exam Limitations: no limitations General appearance: alert, in no apparent distress Head exam: Present: atraumatic, normocephalic, normal inspection Eye exam: Present: normal appearance, PERRL, EOMI. Absent: scleral icterus, conjunctival injection, periorbital swelling Respiratory exam: Present: normal lung sounds bilaterally. Absent: respiratory distress, wheezes, rales, rhonchi, stridor Cardiovascular Exam: Present: regular rate, normal rhythm, normal heart sounds. Absent: systolic murmur, diastolic murmur, rubs, gallop, clicks GI/Abdominal exam: Present: soft, normal bowel sounds. Absent: distended, tenderness, guarding, rebound, rigid Back exam: Absent: CVA tenderness (R), CVA tenderness (L) Neurological exam: Present: alert, oriented X3 Skin exam: Present: warm, dry, intact, normal color. Absent: rash Course Vital Signs 08/23/19 06:34 Temperature 97.6 F Pulse Rate 68 Respiratory 20 Rate Blood Pressure 131/80 O2 Sat by Pulse 97 Oximetry Medical Decision Making - Medical Decision Making Ultrasound shows evidence of uterine fibroid and suspected adenomyosis. This may be leading to her dysfunctional uterine bleeding. Patient will follow-up with her [employer]SEM[employer] OFFBEARER, primary care physician. Return parameters were discussed. - Lab Data Result diagrams: 08/23/19 07:15 08/23/19 07:15 Lab Results 08/23/19 08/23/19 08/23/19 Range/Units 07:12 07:15 07:15 WBC 2.4 L (3.8-10.6) k/uL RBC 4.36 (3.80-5.40) m/uL Hgb 14.2 (11.4-16.0) gm/dL Hct 43.2 (34.0-46.0) % MCV 99.0 (80.0-100.0) fL MCH 32.6 (25.0-35.0) pg MCHC 32.9 (31.0-37.0) g/dL RDW 12.4 (11.5-15.5) % Plt Count 178 (150-450) k/uL Neutrophils % 38 % Lymphocytes % 51 % Monocytes % 4 % Eosinophils % 5 % Basophils % 1 % Neutrophils # 0.9 L (1.3-7.7) k/uL Lymphocytes # 1.2 (1.0-4.8) k/uL Monocytes # 0.1 (0-1.0) k/uL Eosinophils # 0.1 (0-0.7) k/uL Basophils # 0.0 (0-0.2) k/uL Sodium 138 (137-145) mmol/L Potassium 4.0 (3.5-5.1) mmol/L Chloride 106 (98-107) mmol/L Carbon Dioxide 26 (22-30) mmol/L Anion Gap 6 mmol/L BUN 14 (7-17) mg/dL Creatinine 0.75 (0.52-1.04) mg/dL Est GFR (CKD-EPI)AfAm >90 (>60 ml/min/1.73 sqM) Est GFR (CKD-EPI)NonAf >90 (>60 ml/min/1.73 sqM) Glucose 93 (74-99) mg/dL Calcium 9.3 (8.4-10.2) mg/dL Total Bilirubin 0.5 (0.2-1.3) mg/dL AST 21 (14-36) U/L ALT 10 (4-34) U/L Alkaline Phosphatase 39 (38-126) U/L Total Protein 7.4 (6.3-8.2) g/dL Albumin 4.3 (3.5-5.0) g/dL Urine Color Yellow Urine Appearance Cloudy H (Clear) Urine pH 6.0 (5.0-8.0) Ur Specific [place] 1.027 (1.001-1.035) Urine Protein Trace H (Negative) Urine Glucose (UA) Negative (Negative) Urine Ketones Negative (Negative) Urine Blood Small H (Negative) Urine Nitrite Negative (Negative) Urine Bilirubin Negative (Negative) Urine Urobilinogen 2.0 (<2.0) mg/dL Ur Leukocyte Esterase Negative (Negative) Urine RBC 1 (0-5) /hpf Urine WBC 1 (0-5) /hpf Ur Squamous Epith Cells 17 H (0-4) /hpf Urine Bacteria Rare H (None) /hpf Urine Mucus Many H (None) /hpf Disposition Clinical Impression: Uterine fibroid, Adenomyosis, Dysfunctional uterine bleeding Disposition: HOME SELF-CARE Condition: Stable Instructions (If sedation given, give patient instructions): Dysfunctional Uterine Bleeding (ED) Additional Instructions: Please follow up with your primary care physician and [employer].Please return to the Emergency Department if symptoms worsen or any other concerns. Is patient prescribed a controlled substance at d/c from ED?: No Referrals: Giana Crowe MD [Primary Care Provider] - 1-2 days Time of Disposition: 08:03
[2019-08-23 07:27] LABS: Basophils % (A) 1 %; Eosinophils # (A) 0.1 k/uL (0-0.7); Eosinophils % (A) 5 %; HCT 43.2 % (34.0-46.0); HGB 14.2 gm/dL (11.4-16.0); Lymphocytes # (A) 1.2 k/uL (1.0-4.8); Lymphocytes % (A) 51 %; MCH 32.6 pg (25.0-35.0); MCHC 32.9 g/dL (31.0-37.0); Mean Platelet Volume 8.8; Monocytes # (A) 0.1 k/uL (0-1.0); Monocytes % (A) 4 %; Neutrophils # (A) 0.9 k/uL (1.3-7.7); Neutrophils % (A) 38 %; Platelet Count 178 k/uL (150-450); RBC 4.36 m/uL (3.80-5.40); RDW 12.4 % (11.5-15.5); WBC 2.4 k/uL (3.8-10.6)
[2019-08-23 07:31] LABS: Appearance,Urine Cloudy (Clear); Bacteria,Urine Rare /hpf; Bilirubin,Urine Negative (Negative); Blood,Urine Small (Negative); Color,Urine Yellow; Glucose,Urine (UA) Negative (Negative); Ketones,Urine Negative (Negative); Leukocyte Esterase,Urine Negative (Negative); Mucus,Urine Many /hpf; Nitrite,Urine Negative (Negative); Protein,Urine Trace (Negative); RBC,Urine 1 /hpf (0-5); Specific Gravity,Urine 1.027 (1.001-1.035); Squamous Epithelial Cell,Urine 17 /hpf (0-4); WBC,Urine 1 /hpf (0-5)
[2019-08-23 07:38] LABS: ALT 10 U/L (4-34); AST 21 U/L (14-36); African American GFR (CKD) >90 (>60 ml/min/1.73 sqM); Albumin 4.3 g/dL (3.5-5.0); Alkaline Phosphatase 39 U/L (38-126); Anion Gap 6 mmol/L; Blood Urea Nitrogen 14 mg/dL (7-17); Calcium 9.3 mg/dL (8.4-10.2); Carbon Dioxide 26 mmol/L (22-30); Chloride 106 mmol/L (98-107); Glucose 93 mg/dL (74-99); Non-African American GFR(CKD) >90 (>60 ml/min/1.73 sqM); Sodium 138 mmol/L (137-145); Total Bilirubin 0.5 mg/dL (0.2-1.3); Total Protein 7.4 g/dL (6.3-8.2)
--- NOTE | 2019-08-23 07:41 | US ---
EXAMINATION TYPE: US transvaginal DATE OF EXAM: 08/23/2019 COMPARISON: Previous study dated 02/11/2019. CLINICAL HISTORY: Dysfunctional uterine bleeding. Post menopausal bleeding TECHNIQUE: . Transvaginal sonographic images of the pelvis were acquired. Date of LMP: 2 years EXAM MEASUREMENTS: Uterus: 8.8 x 4.9 x 6.3 cm Endometrial Stripe: 0.3 cm Right Ovary: 2.4 x 1.6 x 1.3 cm Left Ovary: Not visualized 1. Uterus: Anteverted Heterogeneous. Probable fibroid visualized measuring 2.3 x 2.0 x 2.1 cm 2. Endometrium: wnl 3. Right Ovary: wnl 4. Left Ovary: Not visualized Spectral, color and waveform doppler imaging shows good arterial and venous flow within the right o vary; there is no evidence for ovarian torsion in the right ovary. 5. Bilateral Adnexa: wnl 6. Posterior cul-de-sac: wnl IMPRESSION: FIBROID UTERUS SUPERIMPOSED UPON WHAT IS LIKELY ADENOMYOSIS.
[2019-08-23 08:05] VITALS: BP 126/71; PULSE 80; RESP 18
[2019-08-23 08:37] LABS: T4, Free (Free Thyroxine) 1.19 ng/dL (0.78-2.19)
== END 2019-08-23 08:04 | disposition home or self-care (01) ==
LOC: EC 06:27
DX: N80.0 Endometriosis of uterus (principal); D25.9 Leiomyoma of uterus, unspecified; N93.9 Abnormal uterine and vaginal bleeding, unspecified; Z87.891 Personal history of nicotine dependence; Z98.51 Tubal ligation status; Z78.0 Asymptomatic menopausal state
CPT/HCPCS: 36415; 76830; 80053; 81001; 84439; 84443; 85025; 93976; 99284

== ENCOUNTER 2019-10-30 04:57 | Emergency (ER) | payer OTHER ==
[2019-10-30 05:07] VITALS: RESP 18
[2019-10-30] MEDS ORDERED: SODIUM CHLORIDE 0.9% 1,000 ML IV ONE (05:07)
[2019-10-30] MEDS ORDERED: MORPHINE SULFATE 4 MG/ML SYRINGE IVP STA (05:32)
--- NOTE | 2019-10-30 05:32 | ED ---
Female Urogenital HPI - General Chief complaint: Urogenital Stated complaint: Abd pain, pelvic pain Time Seen by Provider: 10/30/19 05:07 Source: patient Mode of arrival: ambulatory Limitations: no limitations - History of Present Illness Initial comments: Kaylie is a 44-year-old female who presents to the ER today for reevaluation of acute on chronic pelvic pain. Patient reports she's been dealing with pelvic pain for nearly a year it's worsened acutely since approximately August. She's been advised that she has fibroids and adenomyosis, she's been following recently at [facility] and in September had a positive beta hCG. Because of this she could not have a endometrial biopsy as planned. They've trended her beta hCG and has been unchanged she reports been measuring it 9. She is scheduled to follow-up with her compression molding machine operator again on the of this month for reevaluation and plan for biopsy. Patient states that today the pain just became worse and she was told by her compression molding machine operator if she has a worsening pain she should come to the ER. She currently only takes Motrin for the pain she's not been prescribed any pain medications. - Related Data Previous Rx's Medication Instructions Recorded Cephalexin [Keflex] 500 mg PO Q6HR 7 Days #28 cap 08/26/18 metroNIDAZOLE [Flagyl] 2,000 mg PO ONCE 1 Days #4 tab 08/26/18 metroNIDAZOLE [metroNIDAZOLE 0.75% 1 applic TOPICAL HS 5 Days #1 tube 08/26/18 Gel] Cyclobenzaprine [Flexeril] 5 mg PO BID PRN #15 tablet 12/22/18 Penicillin V Potassium [Pen Vee K] 500 mg PO QID #40 tablet 07/30/19 Allergies Allergy/AdvReac Type Severity Reaction Status Date / Time No Known Allergies Allergy Verified 08/23/19 06:38 Review of Systems ROS Statement: Those systems with pertinent positive or pertinent negative responses have been documented in the HPI. ROS Other: All systems not noted in ROS Statement are negative. Past Medical History Past Medical History: Asthma, GERD/Reflux, Thyroid Disorder Additional Past Medical History / Comment(s): scoliosis History of Any Multi-Drug Resistant Organisms: None Reported Past Surgical History: Tubal Ligation Additional Past Surgical History / Comment(s): D&C Past Psychological History: Depression Smoking Status: Never smoker Past Alcohol Use History: Occasional Past Drug Use History: Marijuana General Exam - General Exam Comments Initial Comments: Physical Exam GENERAL: Patient is well-developed and well-nourished. Patient is nontoxic and well-hydrated and is in no distress. HENT: Normocephalic, Atraumatic. EYES: PERRL, EOMI PULMONARY: Unlabored respirations. CARDIOVASCULAR: RRR Warm and well perfused extremities ABDOMEN: Non-distended Tenderness to palpation in the upper pubic region Bedside ultrasound reveals no free fluid in the abdomen SKIN: No rashes or bruising : Deferred NEUROLOGIC: Alert and oriented Normal speech Normal gait MUSCULOSKELETAL: Moving all extremities with no apparent injury PSYCHIATRIC: No SI/HI Limitations: no limitations Course Vital Signs 10/30/19 10/30/19 05:00 07:02 Temperature 98.0 F 98.8 F Pulse Rate 71 77 Respiratory 18 18 Rate Blood Pressure 112/71 129/79 O2 Sat by Pulse 100 98 Oximetry Medical Decision Making - Medical Decision Making Patient was seen and evaluated history was obtained from patient Patient with acute on chronic pelvic pain, recently had elevated beta hCG maximum elevation was 9 and has been trending down over the past week Bedside ultrasound reveals no free fluid Labs were obtained, beta hCG continues to trend down Patient was reevaluated after pain medications is resting comfortably comfortable with plan for discharge home with Tylenol 3 starter pack. Patient will contact her compression molding machine operator today for further follow-up. Patient was provided with a copy of her labs upon discharge. - Lab Data Result diagrams: 10/30/19 06:09 10/30/19 06:09 Lab Results 10/30/19 10/30/19 10/30/19 Range/Units 06:09 06:09 06:09 WBC 2.5 L (3.8-10.6) k/uL RBC 4.11 (3.80-5.40) m/uL Hgb 13.7 (11.4-16.0) gm/dL Hct 42.1 (34.0-46.0) % MCV 102.6 H (80.0-100.0) fL MCH 33.4 (25.0-35.0) pg MCHC 32.6 (31.0-37.0) g/dL RDW 12.9 (11.5-15.5) % Plt Count 186 (150-450) k/uL Neutrophils % (Manual) 30 % Lymphocytes % (Manual) 61 % Monocytes % (Manual) 5 % Eosinophils % (Manual) 4 % Neutrophils # (Manual) 0.75 L (1.3-7.7) k/uL Lymphocytes # (Manual) 1.53 (1.0-4.8) k/uL Monocytes # (Manual) 0.13 (0-1.0) k/uL Eosinophils # (Manual) 0.10 (0-0.7) k/uL Nucleated RBCs 0 (0-0) /100 WBC Manual Slide Review Performed Macrocytosis Slight PT 10.5 (9.0-12.0) sec INR 1.0 (<1.2) APTT 23.6 (22.0-30.0) sec Sodium (137-145) mmol/L Potassium (3.5-5.1) mmol/L Chloride (98-107) mmol/L Carbon Dioxide (22-30) mmol/L Anion Gap mmol/L BUN (7-17) mg/dL Creatinine (0.52-1.04) mg/dL Est GFR (CKD-EPI)AfAm (>60 ml/min/1.73 sqM) Est GFR (CKD-EPI)NonAf (>60 ml/min/1.73 sqM) Glucose (74-99) mg/dL Calcium (8.4-10.2) mg/dL Total Bilirubin (0.2-1.3) mg/dL AST (14-36) U/L ALT (4-34) U/L Alkaline Phosphatase (38-126) U/L Total Protein (6.3-8.2) g/dL Albumin (3.5-5.0) g/dL HCG, Quant mIU/mL Urine Color Yellow Urine Appearance Clear (Clear) Urine pH 7.5 (5.0-8.0) Ur Specific [place] 1.034 (1.001-1.035) Urine Protein 1+ H (Negative) Urine Glucose (UA) Negative (Negative) Urine Ketones 1+ H (Negative) Urine Blood Negative (Negative) Urine Nitrite Negative (Negative) Urine Bilirubin Negative (Negative) Urine Urobilinogen 8.0 (<2.0) mg/dL Ur Leukocyte Esterase Negative (Negative) Urine RBC <1 (0-5) /hpf Urine WBC 1 (0-5) /hpf Ur Squamous Epith Cells 6 H (0-4) /hpf Hyaline Casts 1 (0-2) /lpf Urine Mucus Many H (None) /hpf Blood Type Blood Type Recheck Bld Type Recheck Status 10/30/19 10/30/19 Range/Units 06:09 06:09 WBC (3.8-10.6) k/uL RBC (3.80-5.40) m/uL Hgb (11.4-16.0) gm/dL Hct (34.0-46.0) % MCV (80.0-100.0) fL MCH (25.0-35.0) pg MCHC (31.0-37.0) g/dL RDW (11.5-15.5) % Plt Count (150-450) k/uL Neutrophils % (Manual) % Lymphocytes % (Manual) % Monocytes % (Manual) % Eosinophils % (Manual) % Neutrophils # (Manual) (1.3-7.7) k/uL Lymphocytes # (Manual) (1.0-4.8) k/uL Monocytes # (Manual) (0-1.0) k/uL Eosinophils # (Manual) (0-0.7) k/uL Nucleated RBCs (0-0) /100 WBC Manual Slide Review Macrocytosis PT (9.0-12.0) sec INR (<1.2) APTT (22.0-30.0) sec Sodium 140 (137-145) mmol/L Potassium 4.3 (3.5-5.1) mmol/L Chloride 105 (98-107) mmol/L Carbon Dioxide 31 H (22-30) mmol/L Anion Gap 4 mmol/L BUN 15 (7-17) mg/dL Creatinine 0.70 (0.52-1.04) mg/dL Est GFR (CKD-EPI)AfAm >90 (>60 ml/min/1.73 sqM) Est GFR (CKD-EPI)NonAf >90 (>60 ml/min/1.73 sqM) Glucose 89 (74-99) mg/dL Calcium 9.6 (8.4-10.2) mg/dL Total Bilirubin 1.0 (0.2-1.3) mg/dL AST 28 (14-36) U/L ALT 14 (4-34) U/L Alkaline Phosphatase 35 L (38-126) U/L Total Protein 7.2 (6.3-8.2) g/dL Albumin 4.5 (3.5-5.0) g/dL HCG, Quant 6.9 mIU/mL Urine Color Urine Appearance (Clear) Urine pH (5.0-8.0) Ur Specific [place] (1.001-1.035) Urine Protein (Negative) Urine Glucose (UA) (Negative) Urine Ketones (Negative) Urine Blood (Negative) Urine Nitrite (Negative) Urine Bilirubin (Negative) Urine Urobilinogen (<2.0) mg/dL Ur Leukocyte Esterase (Negative) Urine RBC (0-5) /hpf Urine WBC (0-5) /hpf Ur Squamous Epith Cells (0-4) /hpf Hyaline Casts (0-2) /lpf Urine Mucus (None) /hpf Blood Type A Positive Blood Type Recheck No Previous Record Bld Type Recheck Status [facility] ONLY Disposition Clinical Impression: Chronic pelvic pain in female Disposition: HOME SELF-CARE Condition: Stable Additional Instructions: Your HCG today is 6.9 Call your Rooming House Operator today for follow up Is patient prescribed a controlled substance at d/c from ED?: No Referrals: None,Stated [Primary Care Provider] - 1-2 days
[2019-10-30 06:18] LABS: HCT 42.1 % (34.0-46.0); HGB 13.7 gm/dL (11.4-16.0); MCH 33.4 pg (25.0-35.0); MCHC 32.6 g/dL (31.0-37.0); MCV 102.6 fL (80.0-100.0); Macrocytosis Slight; Mean Platelet Volume 8.3; Platelet Count 186 k/uL (150-450); RBC 4.11 m/uL (3.80-5.40); RDW 12.9 % (11.5-15.5); WBC 2.5 k/uL (3.8-10.6)
[2019-10-30 06:23] LABS: Appearance,Urine Clear (Clear); Bilirubin,Urine Negative (Negative); Blood,Urine Negative (Negative); Color,Urine Yellow; Glucose,Urine (UA) Negative (Negative); Hyaline Casts,Urine 1 /lpf (0-2); Ketones,Urine 1+ (Negative); Leukocyte Esterase,Urine Negative (Negative); Mucus,Urine Many /hpf; Nitrite,Urine Negative (Negative); PH, Urine 7.5 (5.0-8.0); Protein,Urine 1+ (Negative); RBC,Urine <1 /hpf (0-5); Specific Gravity,Urine 1.034 (1.001-1.035); Squamous Epithelial Cell,Urine 6 /hpf (0-4); WBC,Urine 1 /hpf (0-5)
[2019-10-30 06:26] LABS: Partial Thromboplastin Time 23.6 sec (22.0-30.0); Prothrombin Time 10.5 sec (9.0-12.0)
[2019-10-30 06:32] LABS: ALT 14 U/L (4-34); AST 28 U/L (14-36); African American GFR (CKD) >90 (>60 ml/min/1.73 sqM); Albumin 4.5 g/dL (3.5-5.0); Alkaline Phosphatase 35 U/L (38-126); Anion Gap 4 mmol/L; Blood Urea Nitrogen 15 mg/dL (7-17); Calcium 9.6 mg/dL (8.4-10.2); Carbon Dioxide 31 mmol/L (22-30); Chloride 105 mmol/L (98-107); Glucose 89 mg/dL (74-99); Non-African American GFR(CKD) >90 (>60 ml/min/1.73 sqM); Potassium 4.3 mmol/L (3.5-5.1); Sodium 140 mmol/L (137-145); Total Protein 7.2 g/dL (6.3-8.2)
[2019-10-30] MEDS ORDERED: ACET/COD 300 MG/30 MG STARTER PACK 6 TAB BTL PO STA (06:33)
[2019-10-30 06:44] LABS: Lymphocytes # (M) 1.53 k/uL (1.0-4.8); Monocytes # (M) 0.13 k/uL (0-1.0); Neutrophils # (M) 0.75 k/uL (1.3-7.7); Neutrophils % (M) 30 %; Nucleated Red Blood Cells 0 /100 WBC (0-0); Total Cells Counted 100
[2019-10-30 06:47] LABS: HCG,Quantitative Serum 6.9 mIU/mL
[2019-10-30 07:02] VITALS: BP 129/79; PULSE 77; TEMP 98.8
== END 2019-10-30 07:03 | disposition home or self-care (01) ==
LOC: EC 04:57
DX: G89.29 Other chronic pain (principal); R10.2 Pelvic and perineal pain; R89.1 Abnormal level of hormones in specimens from other organs, systems and tissues
CPT/HCPCS: 36415; 86900; 86901; 80053; 85025; 85610; 85730; 81001; 84702; 99284; 96374; 96361; J2270

== ENCOUNTER 2019-11-11 18:25 | Emergency (ER) | payer OTHER ==
[2019-11-11 18:42] VITALS: TEMP 97.7
[2019-11-11] MEDS ORDERED: SODIUM CHLORIDE 0.9% 1,000 ML IV STA ×2 (18:46)
[2019-11-11] MEDS ORDERED: ONDANSETRON 4 MG/2 ML VIAL IVP STA (18:46)
[2019-11-11] MEDS ORDERED: MORPHINE SULFATE 4 MG/ML SYRINGE IV STA (18:46)
[2019-11-11] MEDS ORDERED: KETOROLAC 30 MG/ML 1 ML VIAL IVP STA (18:46)
[2019-11-11 19:27] LABS: Basophils % (A) 0 %; Eosinophils # (A) 0.2 k/uL (0-0.7); Eosinophils % (A) 3 %; HCT 43.6 % (34.0-46.0); Lymphocytes # (A) 1.2 k/uL (1.0-4.8); Lymphocytes % (A) 17 %; MCH 33.9 pg (25.0-35.0); MCHC 34.3 g/dL (31.0-37.0); MCV 98.9 fL (80.0-100.0); Mean Platelet Volume 9.2; Monocytes # (A) 0.1 k/uL (0-1.0); Monocytes % (A) 2 %; Neutrophils # (A) 5.5 k/uL (1.3-7.7); Neutrophils % (A) 77 %; Platelet Count 226 k/uL (150-450); RBC 4.41 m/uL (3.80-5.40); RDW 12.4 % (11.5-15.5); WBC 7.2 k/uL (3.8-10.6)
[2019-11-11 19:35] LABS: ALT 18 U/L (4-34); AST 34 U/L (14-36); African American GFR (CKD) >90 (>60 ml/min/1.73 sqM); Albumin 5.3 g/dL (3.5-5.0); Alkaline Phosphatase 49 U/L (38-126); Amylase 86 U/L (30-110); Anion Gap 14 mmol/L; Blood Urea Nitrogen 14 mg/dL (7-17); Calcium 10.9 mg/dL (8.4-10.2); Carbon Dioxide 21 mmol/L (22-30); Chloride 104 mmol/L (98-107); Glucose 173 mg/dL (74-99); Non-African American GFR(CKD) >90 (>60 ml/min/1.73 sqM); Potassium 3.5 mmol/L (3.5-5.1); Sodium 139 mmol/L (137-145); Total Protein 8.2 g/dL (6.3-8.2)
[2019-11-11 19:41] LABS: INR 1.1 (<1.2); Partial Thromboplastin Time 22.2 sec (22.0-30.0); Prothrombin Time 11.3 sec (9.0-12.0)
--- NOTE | 2019-11-11 19:42 | ED ---
Abdominal Pain HPI - General Chief Complaint: Abdominal Pain Stated Complaint: Abd Pain Time Seen by Provider: 11/11/19 18:41 Source: patient, EMS, RN notes reviewed, old records reviewed Mode of arrival: EMS Limitations: no limitations - History of Present Illness Initial Comments: 44-year-old female present emergency room today with severe suprapubic and pelvic abdominal pain starting at 2:00 this afternoon. She points nausea and vomiting. She reports a history of fibroids and ovarian cyst. Her pathology specialist is at [facility]. states she is postmenopausal for 3 years. She's been evaluated multiple times in the emergency department for pelvic abdominal pain. Patient states that she has had no recent fevers or chills. Denies any change in urination. She has reported some diarrhea today. - Related Data Previous Rx's Medication Instructions Recorded Cephalexin [Keflex] 500 mg PO Q6HR 7 Days #28 cap 08/26/18 metroNIDAZOLE [Flagyl] 2,000 mg PO ONCE 1 Days #4 tab 08/26/18 metroNIDAZOLE [metroNIDAZOLE 0.75% 1 applic TOPICAL HS 5 Days #1 tube 08/26/18 Gel] Cyclobenzaprine [Flexeril] 5 mg PO BID PRN #15 tablet 12/22/18 Penicillin V Potassium [Pen Vee K] 500 mg PO QID #40 tablet 07/30/19 Allergies Allergy/AdvReac Type Severity Reaction Status Date / Time No Known Allergies Allergy Verified 08/23/19 06:38 Review of Systems ROS Statement: Those systems with pertinent positive or pertinent negative responses have been documented in the HPI. ROS Other: All systems not noted in ROS Statement are negative. Past Medical History Past Medical History: Asthma, GERD/Reflux, Thyroid Disorder Additional Past Medical History / Comment(s): scoliosis History of Any Multi-Drug Resistant Organisms: None Reported Past Surgical History: Tubal Ligation Additional Past Surgical History / Comment(s): D&C Past Psychological History: Depression Smoking Status: Never smoker Past Alcohol Use History: Occasional Past Drug Use History: Marijuana General Exam - General Exam Comments Initial Comments: 44-year-old male. Alert and oriented. Limitations: no limitations General appearance: alert, in no apparent distress Head exam: Present: atraumatic, normocephalic, normal inspection Eye exam: Present: normal appearance, PERRL, EOMI. Absent: scleral icterus, conjunctival injection, periorbital swelling ENT exam: Present: normal exam, mucous membranes moist Neck exam: Present: normal inspection. Absent: tenderness, meningismus, lymphadenopathy Respiratory exam: Present: normal lung sounds bilaterally. Absent: respiratory distress, wheezes, rales, rhonchi, stridor Cardiovascular Exam: Present: regular rate, normal rhythm, normal heart sounds. Absent: systolic murmur, diastolic murmur, rubs, gallop, clicks GI/Abdominal exam: Present: soft, tenderness (suprapubic pain) Extremities exam: Present: normal inspection, full ROM, normal capillary refill. Absent: tenderness, pedal edema, joint swelling, calf tenderness Back exam: Present: normal inspection Neurological exam: Present: alert, oriented X3, CN II-XII intact Psychiatric exam: Present: normal affect, normal mood Skin exam: Present: warm, dry, intact, normal color. Absent: rash Course Vital Signs 11/11/19 11/11/19 11/11/19 18:35 20:03 22:39 Temperature 97.7 F Pulse Rate 87 79 60 Respiratory 18 18 16 Rate Blood Pressure 107/79 102/72 117/73 O2 Sat by Pulse 100 100 100 Oximetry - Reevaluation(s) Reevaluation #1: 11/11/19 20:44 Patient would not tolerate the ultrasound so therefore appropriate images to rule out torsion were not completed. I was not informed of this until the 2 hour and 15 minute trish. Patient still complaining of pain to her mid abdomen and towards her back. Medical Decision Making - Medical Decision Making 44 year old female presents for nausea, vomiting and pelvic pain starting at 2pm as well as episodes of diarrhea. She arrives in significant discomfort. She was given IV fluids, labs obtained and shows lactic acid elevation. She ahs history of uterine flibroid and is scheduled for biopsy with OBGYN on , this was delayed as she kept having postive HCG. Today serum quant hcg is 6.1. PAtient has no vaginal bleeding or discharge. Patient was given dilaudid after continued pain and after this she felt 100% better. US shows no torsion. She does to possibly eating something today that caused vomiting and diarrhea. Repeat lactic acid was normal. - Lab Data Result diagrams: 11/11/19 19:07 11/11/19 19:07 Lab Results 11/11/19 11/11/19 11/11/19 Range/Units 19:07 19:07 19:07 WBC 7.2 (3.8-10.6) k/uL RBC 4.41 (3.80-5.40) m/uL Hgb 15.0 (11.4-16.0) gm/dL Hct 43.6 (34.0-46.0) % MCV 98.9 (80.0-100.0) fL MCH 33.9 (25.0-35.0) pg MCHC 34.3 (31.0-37.0) g/dL RDW 12.4 (11.5-15.5) % Plt Count 226 (150-450) k/uL Neutrophils % 77 % Lymphocytes % 17 % Monocytes % 2 % Eosinophils % 3 % Basophils % 0 % Neutrophils # 5.5 (1.3-7.7) k/uL Lymphocytes # 1.2 (1.0-4.8) k/uL Monocytes # 0.1 (0-1.0) k/uL Eosinophils # 0.2 (0-0.7) k/uL Basophils # 0.0 (0-0.2) k/uL PT 11.3 (9.0-12.0) sec INR 1.1 (<1.2) APTT 22.2 (22.0-30.0) sec Sodium 139 (137-145) mmol/L Potassium 3.5 (3.5-5.1) mmol/L Chloride 104 (98-107) mmol/L Carbon Dioxide 21 L (22-30) mmol/L Anion Gap 14 mmol/L BUN 14 (7-17) mg/dL Creatinine 0.70 (0.52-1.04) mg/dL Est GFR (CKD-EPI)AfAm >90 (>60 ml/min/1.73 sqM) Est GFR (CKD-EPI)NonAf >90 (>60 ml/min/1.73 sqM) Glucose 173 H (74-99) mg/dL Lactic Ac Sepsis Rflx Plasma Lactic Acid [place] (0.7-2.0) mmol/L Calcium 10.9 H (8.4-10.2) mg/dL Total Bilirubin 1.0 (0.2-1.3) mg/dL AST 34 (14-36) U/L ALT 18 (4-34) U/L Alkaline Phosphatase 49 (38-126) U/L Total Protein 8.2 (6.3-8.2) g/dL Albumin 5.3 H (3.5-5.0) g/dL Amylase 86 (30-110) U/L Lipase 110 (23-300) U/L HCG, Quant 6.1 mIU/mL Urine Color Urine Appearance (Clear) Urine pH (5.0-8.0) Ur Specific [place] (1.001-1.035) Urine Protein (Negative) Urine Glucose (UA) (Negative) Urine Ketones (Negative) Urine Blood (Negative) Urine Nitrite (Negative) Urine Bilirubin (Negative) Urine Urobilinogen (<2.0) mg/dL Ur Leukocyte Esterase (Negative) Urine RBC (0-5) /hpf Urine WBC (0-5) /hpf Ur Squamous Epith Cells (0-4) /hpf Urine Mucus (None) /hpf 11/11/19 11/11/19 11/11/19 Range/Units 19:07 19:43 21:00 WBC (3.8-10.6) k/uL RBC (3.80-5.40) m/uL Hgb (11.4-16.0) gm/dL Hct (34.0-46.0) % MCV (80.0-100.0) fL MCH (25.0-35.0) pg MCHC (31.0-37.0) g/dL RDW (11.5-15.5) % Plt Count (150-450) k/uL Neutrophils % % Lymphocytes % % Monocytes % % Eosinophils % % Basophils % % Neutrophils # (1.3-7.7) k/uL Lymphocytes # (1.0-4.8) k/uL Monocytes # (0-1.0) k/uL Eosinophils # (0-0.7) k/uL Basophils # (0-0.2) k/uL PT (9.0-12.0) sec INR (<1.2) APTT (22.0-30.0) sec Sodium (137-145) mmol/L Potassium (3.5-5.1) mmol/L Chloride (98-107) mmol/L Carbon Dioxide (22-30) mmol/L Anion Gap mmol/L BUN (7-17) mg/dL Creatinine (0.52-1.04) mg/dL Est GFR (CKD-EPI)AfAm (>60 ml/min/1.73 sqM) Est GFR (CKD-EPI)NonAf (>60 ml/min/1.73 sqM) Glucose (74-99) mg/dL Lactic Ac Sepsis Rflx Y Plasma Lactic Acid [place] 4.6 H* (0.7-2.0) mmol/L Calcium (8.4-10.2) mg/dL Total Bilirubin (0.2-1.3) mg/dL AST (14-36) U/L ALT (4-34) U/L Alkaline Phosphatase (38-126) U/L Total Protein (6.3-8.2) g/dL Albumin (3.5-5.0) g/dL Amylase (30-110) U/L Lipase (23-300) U/L HCG, Quant mIU/mL Urine Color Yellow Urine Appearance Clear (Clear) Urine pH 8.5 H (5.0-8.0) Ur Specific [place] 1.030 (1.001-1.035) Urine Protein 2+ H (Negative) Urine Glucose (UA) Negative (Negative) Urine Ketones 4+ H (Negative) Urine Blood Negative (Negative) Urine Nitrite Negative (Negative) Urine Bilirubin Negative (Negative) Urine Urobilinogen <2.0 (<2.0) mg/dL Ur Leukocyte Esterase Trace H (Negative) Urine RBC 1 (0-5) /hpf Urine WBC 6 H (0-5) /hpf Ur Squamous Epith Cells <1 (0-4) /hpf Urine Mucus Many H (None) /hpf 11/11/19 Range/Units 22:20 WBC (3.8-10.6) k/uL RBC (3.80-5.40) m/uL Hgb (11.4-16.0) gm/dL Hct (34.0-46.0) % MCV (80.0-100.0) fL MCH (25.0-35.0) pg MCHC (31.0-37.0) g/dL RDW (11.5-15.5) % Plt Count (150-450) k/uL Neutrophils % % Lymphocytes % % Monocytes % % Eosinophils % % Basophils % % Neutrophils # (1.3-7.7) k/uL Lymphocytes # (1.0-4.8) k/uL Monocytes # (0-1.0) k/uL Eosinophils # (0-0.7) k/uL Basophils # (0-0.2) k/uL PT (9.0-12.0) sec INR (<1.2) APTT (22.0-30.0) sec Sodium (137-145) mmol/L Potassium (3.5-5.1) mmol/L Chloride (98-107) mmol/L Carbon Dioxide (22-30) mmol/L Anion Gap mmol/L BUN (7-17) mg/dL Creatinine (0.52-1.04) mg/dL Est GFR (CKD-EPI)AfAm (>60 ml/min/1.73 sqM) Est GFR (CKD-EPI)NonAf (>60 ml/min/1.73 sqM) Glucose (74-99) mg/dL Lactic Ac Sepsis Rflx Plasma Lactic Acid [place] 1.1 (0.7-2.0) mmol/L Calcium (8.4-10.2) mg/dL Total Bilirubin (0.2-1.3) mg/dL AST (14-36) U/L ALT (4-34) U/L Alkaline Phosphatase (38-126) U/L Total Protein (6.3-8.2) g/dL Albumin (3.5-5.0) g/dL Amylase (30-110) U/L Lipase (23-300) U/L HCG, Quant mIU/mL Urine Color Urine Appearance (Clear) Urine pH (5.0-8.0) Ur Specific [place] (1.001-1.035) Urine Protein (Negative) Urine Glucose (UA) (Negative) Urine Ketones (Negative) Urine Blood (Negative) Urine Nitrite (Negative) Urine Bilirubin (Negative) Urine Urobilinogen (<2.0) mg/dL Ur Leukocyte Esterase (Negative) Urine RBC (0-5) /hpf Urine WBC (0-5) /hpf Ur Squamous Epith Cells (0-4) /hpf Urine Mucus (None) /hpf 11/11/19 20:00 EKG performed and shows normal sinus rhythm with normal EKG. Ventricular rate of 69 bpm. Pulse 112 ms. QS duration is 70 ms. QT QTc is 456/480 ms. - Radiology Data Radiology results: report reviewed Limited pelvic ultrasound exam. Sagittal plane of the uterus chemistries normal uterine size no endometrial thickening. Bilateral adnexa ovaries and cul-de-sac are not evaluated. Full pelvic exam shows No evidence of ovarian torsion, 1.8cm posterior uterine fibroid. No endometrial mass. Disposition Clinical Impression: Pelvic pain, Vomiting and diarrhea Disposition: HOME SELF-CARE Condition: Good Instructions (If sedation given, give patient instructions): Gastroenteritis (ED), Pelvic Pain in Women (ED) Additional Instructions: Follow-up with your PUBLIC RECORDS OFFICER this week. Patient should have a clear bland diet. Return to the emergency department if any alarming signs or symptoms occur. Is patient prescribed a controlled substance at d/c from ED?: No Referrals: Nonstaff,Physician [Primary Care Provider] - 1-2 days Time of Disposition: 23:01
[2019-11-11 19:51] LABS: HCG,Quantitative Serum 6.1 mIU/mL
[2019-11-11] MEDS ORDERED: SODIUM CHLORIDE 0.9% 1,000 ML IV ONE (20:36)
[2019-11-11] MEDS ORDERED: HYDROmorphone 1 MG/ML 1 ML SYRINGE IVP STA (20:44)
--- NOTE | 2019-11-11 20:59 | US ---
EXAMINATION TYPE: US transvaginal DATE OF EXAM: 11/11/2019 COMPARISON: US, CT CLINICAL HISTORY: pain. Pelvic pain x a few months. Hx tubal ligation, D and C, Essure. LMP unknown, postmenopausal. . Previous ultrasound showed probable fibroid. TECHNIQUE: Transvaginal (TV). Transabdominal sonographic images of the pelvis were acquired. *Limited exam. Minimal images were taken of the uterus. Patient requested to end the exam due to ramone re pain. Date of LMP: Unknown EXAM MEASUREMENTS: Uterus: 7.9 x 4.6 cm Sagittal image only taken. Appears heterogeneous. Endometrial Stripe: Difficult to distinguish, measured at 0.26 cm. Unable to fully evaluate uterus. Ovaries and adnexa not evaluated due to patient requesting to end ex am. IMPRESSION: Limited pelvic ultrasound examination, due to patient request to exam due to pain. 1. Single sagittal plane of the uterus demonstrates normal uterine size and no endometrial thickening . 2. Bilateral adnexa, ovaries, and cul-de-sac not evaluated.
[2019-11-11 21:32] LABS: Appearance,Urine Clear (Clear); Bilirubin,Urine Negative (Negative); Blood,Urine Negative (Negative); Color,Urine Yellow; Glucose,Urine (UA) Negative (Negative); Ketones,Urine 4+ (Negative); Leukocyte Esterase,Urine Trace (Negative); Mucus,Urine Many /hpf; Nitrite,Urine Negative (Negative); PH, Urine 8.5 (5.0-8.0); Protein,Urine 2+ (Negative); RBC,Urine 1 /hpf (0-5); Squamous Epithelial Cell,Urine <1 /hpf (0-4); Urobilinogen,Urine <2.0 mg/dL (<2.0); WBC,Urine 6 /hpf (0-5)
--- NOTE | 2019-11-11 22:29 | US ---
EXAMINATION TYPE: US pelvis complete transvag DATE OF EXAM: 11/11/2019 COMPARISON: US, CT CLINICAL HISTORY: R/O ovarian torsion. R/O ovarian torsion. Pain x few months. Hx tubal ligation, D a nd C, Essure. . TECHNIQUE: Transvaginal (TV) and Transabdominal (TA) . Transabdominal sonographic images of the pel vis were acquired. Transvaginal sonographic images were medically necessary to better assess the fol lowing anatomy: ovaries *Patient given more medication after initial exam, and doctor ordered more imaging at later time. Nisha rine measurements appear clearer in this study. Date of LMP: Unknown EXAM MEASUREMENTS: Uterus: 8.2 x 6.0 x 4.6 cm Endometrial Stripe: 0.22 cm Right Ovary: 2.7 x 1.3 x 1.4 cm Left Ovary: 2.4 x 1.6 x 1.1 cm 1. Uterus: Anteverted Appears heterogeneous. Mixed, solid area with vascularity seen posteriorly m easurin.9 x 1.7 x 1.9 cm. 2. Endometrium: Appears to be thin measuring 0.22 cm. Limited visibility toward fundus. 3. Right Ovary: Borders slightly limited in visibility. Arterial waveform limited; appears to be hig h resistant. Venous waveform seen. 4. Left Ovary: Borders slightly limited in visibility. Arterial and venous waveform seen. 5. Bilateral Adnexa: Appear wnl 6. Posterior cul-de-sac: Fluid-filled bowel seen peristalsing. IMPRESSION: No evidence of ovarian torsion. 1.8 cm posterior uterine fibroid. No endometrial mass.
[2019-11-11 22:40] VITALS: BP 117/73; PULSE 60; RESP 16
[2019-11-11] MEDS ORDERED: ACET/COD 300 MG/30 MG STARTER PACK 6 TAB BTL PO STA (23:02)
== END 2019-11-11 23:14 | disposition home or self-care (01) ==
LOC: EC 18:25
DX: R10.2 Pelvic and perineal pain (principal); R11.2 Nausea with vomiting, unspecified; R19.7 Diarrhea, unspecified; Z78.0 Asymptomatic menopausal state
CPT/HCPCS: 36415; 93005; 80053; 82150; 83605; 83690; 85025; 85610; 85730; 81001; 84702; 93975; 76856; 76830; 99285; 96374; 96375 ×3; 96361 ×4; J2270; J2405; J1885; J1170

== ENCOUNTER 2020-01-09 06:22 | Emergency (ER) | payer OTHER ==
[2020-01-09 06:32] VITALS: RESP 18
[2020-01-09] MEDS ORDERED: SODIUM CHLORIDE 0.9% 1,000 ML IV STA (06:36)
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
[2020-01-09 06:59] LABS: Basophils % (A) 0 %; Eosinophils # (A) 0.3 k/uL (0-0.7); Eosinophils % (A) 7 %; HCT 30.6 % (34.0-46.0); Lymphocytes # (A) 1.2 k/uL (1.0-4.8); Lymphocytes % (A) 29 %; MCH 33.4 pg (25.0-35.0); MCHC 33.9 g/dL (31.0-37.0); MCV 98.6 fL (80.0-100.0); Mean Platelet Volume 9.1; Monocytes # (A) 0.1 k/uL (0-1.0); Monocytes % (A) 3 %; Neutrophils # (A) 2.6 k/uL (1.3-7.7); Neutrophils % (A) 60 %; Platelet Count 164 k/uL (150-450); RBC 3.11 m/uL (3.80-5.40); RDW 12.7 % (11.5-15.5); WBC 4.2 k/uL (3.8-10.6)
--- NOTE | 2020-01-09 07:03 | XR ---
EXAMINATION TYPE: XR chest 2V DATE OF EXAM: 01/09/2020 COMPARISON: NONE HISTORY: Short of breath TECHNIQUE: 2 views FINDINGS: Heart is normal. Lungs are clear. Diaphragm is normal. Bony thorax appears normal. There ar e chest leads. IMPRESSION: Normal chest.
[2020-01-09 07:05] LABS: HGB 10.4 gm/dL (11.4-16.0)
[2020-01-09 07:09] LABS: ALT 11 U/L (4-34); AST 20 U/L (14-36); African American GFR (CKD) >90 (>60 ml/min/1.73 sqM); Albumin 3.4 g/dL (3.5-5.0); Alkaline Phosphatase 39 U/L (38-126); Anion Gap 5 mmol/L; Blood Urea Nitrogen 8 mg/dL (7-17); Calcium 8.1 mg/dL (8.4-10.2); Carbon Dioxide 24 mmol/L (22-30); Chloride 110 mmol/L (98-107); Glucose 90 mg/dL (74-99); Magnesium 1.7 mg/dL (1.6-2.3); Non-African American GFR(CKD) >90 (>60 ml/min/1.73 sqM); Potassium 3.4 mmol/L (3.5-5.1); Sodium 139 mmol/L (137-145); Total Bilirubin 0.6 mg/dL (0.2-1.3); Total Protein 5.9 g/dL (6.3-8.2)
--- NOTE | 2020-01-09 08:22 | CT ---
EXAMINATION TYPE: CT chest angio for PE DATE OF EXAM: 01/09/2020 COMPARISON: Chest x-ray same date HISTORY: SOB, Chest pain CT DLP: 159.8 mGycm Automated exposure control for dose reduction was used. CONTRAST: CT Chest for pulmonary embolism performed with with IV Contrast, patient injected with 66 mL of Isovu e 370. FINDINGS: Punctate foci of free air are noted within the abdomen likely related to patient's hysterec valencia 4 days prior. LUNGS: The lungs are grossly clear, there is no concerning parenchymal mass or nodule identified. T here is no pleural effusion or pneumothorax seen. The tracheobronchial tree is patent. MEDIASTINUM: There is satisfactory enhancement of the pulmonary artery and its branches, there is no CT evidence for pulmonary embolism. There are no greater than 1 cm hilar or mediastinal lymph nodes. No pericardial effusion is seen. AORTA: No additional significant abnormality is seen. OTHER: No additional significant abnormality is seen. IMPRESSION: No pulmonary embolism. Pneumoperitoneum is likely postoperative.
[2020-01-09 09:00] VITALS: BP 122/78; PULSE 67; TEMP 98.7
== END 2020-01-09 09:13 | disposition home or self-care (01) ==
LOC: EC 06:22
DX: F43.9 Reaction to severe stress, unspecified (principal); R06.02 Shortness of breath; Z90.710 Acquired absence of both cervix and uterus; Z87.891 Personal history of nicotine dependence
CPT/HCPCS: 36415; 93005; 85379; 80053; 83605; 83735; 84484; 85025; 71046; 71275; 99285; 96360; 96361; Q9967

== ENCOUNTER → 2020-04-01 | Outpatient (CLI) | payer OTHER ==
--- NOTE | 2020-04-01 15:58 | US ---
EXAMINATION TYPE: US thyroid st tissue head/neck DATE OF EXAM: 04/01/2020 COMPARISON: Chest CTA January 09, 2020 CLINICAL HISTORY: E05.90 HYPERTHYROIDISM. Patient stated was just diagnosed with Grave's Disease and just started on medication for it. GLAND SIZE: Right Lobe: 5.1 x 1.3 x 1.5 cm Overall Parenchyma: homogenous Left Lobe: 5.2 x 2.1 x 1.1 cm Overall Parenchyma: homogeneous Isthmus Thickness: 0.3 cm NODULES RIGHT: # of nodules measured on right: 1 1. 0.2 X 0.3 x 0.1 cm cystic or almost completely cystic, anechoic. linear nodule, which is wider t arzola tall, with lobulated or irregular margins, without echogenic foci. LEFT: # of nodules measured on left: 2 1. 0.9 X 0.5 x 0.3 cm spongiform, hypoechoic nodule mid pole, which is wider than tall, with irregu lar margins, without echogenic foci. 2. 0.2 X 0.3 x 0.2 cm mixed cystic and solid, hypoechoic nodule mid pole, which is wider than tall, with irregular margins, without echogenic foci. ISTHMUS: # of nodules measured in the isthmus: 0 Bilateral neck scanned: no evidence of lymphadenopathy. Slightly heterogeneous normal size with a few scattered tiny cystic nodules bilaterally. IMPRESSION: As above. No suspicious greater than 1 cm nodules.
== END | disposition home or self-care (01) ==
LOC: RADUSWWP 15:18
PROVIDERS: ATTEND Internal Medicine
DX: E04.2 Nontoxic multinodular goiter (principal)
CPT/HCPCS: 76536

== ENCOUNTER 2020-07-16 09:46 | Emergency (ER) | payer OTHER ==
[2020-07-16 10:03] VITALS: RESP 18; TEMP 98
[2020-07-16] MEDS ORDERED: SODIUM CHLORIDE 0.9% 1,000 ML IV STA (10:32)
[2020-07-16] MEDS ORDERED: ONDANSETRON 4 MG/2 ML VIAL IVP STA (10:32)
--- NOTE | 2020-07-16 10:43 | ED ---
General Adult HPI - General Chief complaint: Nausea/Vomiting/Diarrhea Stated complaint: Abd pain Time Seen by Provider: 07/16/20 10:06 Source: patient Mode of arrival: ambulatory Limitations: no limitations - History of Present Illness Initial comments: 45-year-old female with history of Graves' disease presents to emergency department with a chief complaint of fatigue nausea vomiting diarrhea. States her symptoms began about 3 days ago with nausea. She also had one episode of nonbilious and nonbloody vomiting. Does report having diarrhea for the past several days. Reports decreased appetite and feeling fatigued. Patient reports she feels like she is moving in "slow motion" dictation. She denies any chest pain or shortness of breath. She sees for management of her recently diagnosed Graves' disease. Patient takes methimazole for hyperthyroidism. Denies abdominal pain back pain or chest pain or shortness of breath. - Related Data Home Medications Medication Instructions Recorded Confirmed methIMAzole [Methimazole] 5 mg PO DAILY 07/16/20 07/16/20 Allergies Allergy/AdvReac Type Severity Reaction Status Date / Time No Known Allergies Allergy Verified 07/16/20 10:29 Review of Systems ROS Statement: Those systems with pertinent positive or pertinent negative responses have been documented in the HPI. ROS Other: All systems not noted in ROS Statement are negative. Past Medical History Past Medical History: Asthma, GERD/Reflux, Thyroid Disorder Additional Past Medical History / Comment(s): scoliosis History of Any Multi-Drug Resistant Organisms: None Reported Past Surgical History: Hysterectomy, Tubal Ligation Additional Past Surgical History / Comment(s): D&C Past Psychological History: Depression Smoking Status: Former smoker Past Alcohol Use History: Occasional, Rare Past Drug Use History: Marijuana General Exam Limitations: no limitations General appearance: alert, in no apparent distress Head exam: Present: atraumatic, normocephalic, normal inspection Eye exam: Present: normal appearance, PERRL, EOMI. Absent: other (No exophthalmos) Pupils: Present: normal accommodation ENT exam: Present: normal exam, normal oropharynx, mucous membranes moist, TM's normal bilaterally, normal external ear exam Neck exam: Present: normal inspection, full ROM. Absent: tenderness, lymphadenopathy, thyromegaly (No detectable goiter) Respiratory exam: Present: normal lung sounds bilaterally. Absent: respiratory distress Cardiovascular Exam: Present: regular rate, normal rhythm, normal heart sounds GI/Abdominal exam: Absent: soft, distended, tenderness, guarding, rebound Extremities exam: Present: normal inspection, full ROM, normal capillary refill. Absent: tenderness, pedal edema, joint swelling Back exam: Present: normal inspection, full ROM. Absent: tenderness, CVA tenderness (R), CVA tenderness (L) Neurological exam: Present: alert, oriented X3 Psychiatric exam: Present: normal affect, normal mood Skin exam: Present: warm, dry, intact, normal color Course Vital Signs 07/16/20 07/16/20 07/16/20 09:59 12:00 13:05 Temperature 98 F Pulse Rate 87 95 Respiratory 18 18 18 Rate Blood Pressure 129/87 110/75 O2 Sat by Pulse 99 100 Oximetry EKG Findings - EKG Comments: EKG Findings:: Sinus bradycardia, no ST or T-wave changes. Ventricular rate 59, TN 126, QRS 72, QTC 405. Medical Decision Making - Medical Decision Making 45-year-old female presented emergency Department with chief complaint of body aches nausea vomiting diarrhea. On physical examination, patient is resting comfortably does not appear to be in any distress. CBC reveals leukopenia. CMP is an [place]. She is currently positive. Advised to quarantine. Advised to t [place] Tylenol for fever. Advised to return to emergency department if symptoms worsen. Case discussed with Dr. Medrano. - Lab Data Result diagrams: 07/16/20 11:06 07/16/20 11:50 Lab Results 07/16/20 07/16/20 07/16/20 Range/Units 11:06 11:50 13:05 WBC 2.8 L (3.8-10.6) k/uL RBC 4.29 (3.80-5.40) m/uL Hgb 15.0 (11.4-16.0) gm/dL Hct 42.0 (34.0-46.0) % MCV 97.8 (80.0-100.0) fL MCH 35.0 (25.0-35.0) pg MCHC 35.8 (31.0-37.0) g/dL RDW 12.4 (11.5-15.5) % Plt Count 136 L (150-450) k/uL MPV 8.3 Neutrophils % 56 % Lymphocytes % 36 % Monocytes % 6 % Eosinophils % 2 % Basophils % 0 % Neutrophils # 1.6 (1.3-7.7) k/uL Lymphocytes # 1.0 (1.0-4.8) k/uL Monocytes # 0.2 (0-1.0) k/uL Eosinophils # 0.0 (0-0.7) k/uL Basophils # 0.0 (0-0.2) k/uL Sodium 139 (137-145) mmol/L Potassium 4.2 (3.5-5.1) mmol/L Chloride 103 (98-107) mmol/L Carbon Dioxide 31 H (22-30) mmol/L Anion Gap 5 mmol/L BUN 8 (7-17) mg/dL Creatinine 0.64 (0.52-1.04) mg/dL Est GFR (CKD-EPI)AfAm >90 (>60 ml/min/1.73 sqM) Est GFR (CKD-EPI)NonAf >90 (>60 ml/min/1.73 sqM) Glucose 96 (74-99) mg/dL Calcium 9.3 (8.4-10.2) mg/dL Total Bilirubin 0.6 (0.2-1.3) mg/dL AST 30 (14-36) U/L ALT 13 (4-34) U/L Alkaline Phosphatase 54 (38-126) U/L Total Protein 7.6 (6.3-8.2) g/dL Albumin 4.5 (3.5-5.0) g/dL TSH 0.672 (0.465-4.680) mIU/L Coronavirus (PCR) Detected A (Not Detectd) Disposition Clinical Impression: COVID-19 Disposition: HOME SELF-CARE Condition: Stable Instructions (If sedation given, give patient instructions): Coronavirus Disease 2019 (COVID-19) Additional Instructions: Quarantine for 10 days. take Tylenol for the fever. Return to emergency depa rtment if symptoms worsen. Is patient prescribed a controlled substance at d/c from ED?: No Referrals: Giana Crowe MD [Primary Care Provider] - 1-2 days Time of Disposition: 13:37
[2020-07-16 11:20] LABS: Basophils % (A) 0 %; Eosinophils % (A) 2 %; Lymphocytes % (A) 36 %; MCHC 35.8 g/dL (31.0-37.0); MCV 97.8 fL (80.0-100.0); Mean Platelet Volume 8.3; Monocytes # (A) 0.2 k/uL (0-1.0); Monocytes % (A) 6 %; Neutrophils # (A) 1.6 k/uL (1.3-7.7); Neutrophils % (A) 56 %; Platelet Count 136 k/uL (150-450); RBC 4.29 m/uL (3.80-5.40); RDW 12.4 % (11.5-15.5); WBC 2.8 k/uL (3.8-10.6)
[2020-07-16 12:03] VITALS: BP 110/75; PULSE 95
[2020-07-16 12:37] LABS: ALT 13 U/L (4-34); AST 30 U/L (14-36); African American GFR (CKD) >90 (>60 ml/min/1.73 sqM); Albumin 4.5 g/dL (3.5-5.0); Alkaline Phosphatase 54 U/L (38-126); Anion Gap 5 mmol/L; Blood Urea Nitrogen 8 mg/dL (7-17); Calcium 9.3 mg/dL (8.4-10.2); Carbon Dioxide 31 mmol/L (22-30); Chloride 103 mmol/L (98-107); Glucose 96 mg/dL (74-99); Non-African American GFR(CKD) >90 (>60 ml/min/1.73 sqM); Potassium 4.2 mmol/L (3.5-5.1); Sodium 139 mmol/L (137-145); Total Bilirubin 0.6 mg/dL (0.2-1.3); Total Protein 7.6 g/dL (6.3-8.2)
== END 2020-07-16 13:50 | disposition home or self-care (01) ==
LOC: EC 09:46
DX: U07.1 COVID-19 (principal); E03.9 Hypothyroidism, unspecified; F32.9 Major depressive disorder, single episode, unspecified; J45.909 Unspecified asthma, uncomplicated; K21.9 Gastro-esophageal reflux disease without esophagitis; Z87.891 Personal history of nicotine dependence
CPT/HCPCS: 36415; 93005; 80053; 84443; 85025; 87635; 99284; 96374; 96361 ×2; J2405

== ENCOUNTER 2020-10-08 12:17 | Emergency (ER) | payer OTHER ==
[2020-10-08 12:21] VITALS: BP 119/81; PULSE 93; RESP 18; TEMP 98.4
--- NOTE | 2020-10-08 13:02 | XR ---
3 views left finger INDICATION: Question foreign body in the left smallest finger No prior studies FINDINGS: No definite acute fracture, dislocation or radiopaque foreign body is seen. Please note, not all fore ign bodies are radiopaque. IMPRESSION: No definite acute fracture, dislocation or radiopaque foreign body is seen. Please note, not all fore ign bodies are radiopaque.
--- NOTE | 2020-10-08 13:29 | ED ---
General Adult HPI - General Chief complaint: Extremity Injury, Upper Stated complaint: Lt Finger Pain Time Seen by Provider: 10/08/20 12:24 Source: patient, RN notes reviewed Mode of arrival: ambulatory Limitations: no limitations - History of Present Illness Initial comments: Patient is a 45-year-old female that presents to the emergency department com plaining of left little finger pain. She notes she noticed a couple days ago while washing dishes. She notes that she did poke herself in the finger with something a month ago and thinks that she might of had a foreign body retained in there. She noted that it was more irritating than painful. She denied any other issues or complaints at this time. She denied any weakness numbness tingling fever fatigue chills decreased range of motion sensation in her left little finger. - Related Data Home Medications Medication Instructions Recorded Confirmed methIMAzole [Methimazole] 5 mg PO DAILY 07/16/20 07/16/20 Allergies Allergy/AdvReac Type Severity Reaction Status Date / Time No Known Allergies Allergy Verified 10/08/20 13:09 Review of Systems ROS Statement: Those systems with pertinent positive or pertinent negative responses have been documented in the HPI. ROS Other: All systems not noted in ROS Statement are negative. Past Medical History Past Medical History: Asthma, GERD/Reflux, Thyroid Disorder Additional Past Medical History / Comment(s): scoliosis History of Any Multi-Drug Resistant Organisms: None Reported Past Surgical History: Hysterectomy, Tubal Ligation Additional Past Surgical History / Comment(s): D&C Past Psychological History: Depression Smoking Status: Former smoker Past Alcohol Use History: Rare Past Drug Use History: Marijuana General Exam Limitations: no limitations General appearance: alert, in no apparent distress Head exam: Present: atraumatic, normocephalic, normal inspection Eye exam: Present: normal appearance, PERRL, EOMI. Absent: scleral icterus, conjunctival injection, periorbital swelling Neck exam: Present: normal inspection Respiratory exam: Present: normal lung sounds bilaterally. Absent: respiratory distress, wheezes, rales, rhonchi, stridor Cardiovascular Exam: Present: regular rate, normal rhythm, normal heart sounds. Absent: systolic murmur, diastolic murmur, rubs, gallop, clicks Left Hand Wrist exam: Present: normal inspection, full ROM, other (Small blood vessel near the surface, blanchable with no tenderness on palpation). Absent: tenderness, swelling Neurological exam: Present: alert, oriented X3 Psychiatric exam: Present: normal affect, normal mood Skin exam: Present: warm, dry, intact, normal color. Absent: rash Course Vital Signs 10/08/20 12:19 Temperature 98.4 F Pulse Rate 93 Respiratory 18 Rate Blood Pressure 119/81 O2 Sat by Pulse 98 Oximetry Medical Decision Making - Medical Decision Making 45-year-old female complaining of left little finger pain, suspect a possible foreign body. X-ray left little finger ordered. X-ray negative for any radiopaque foreign body. Patient was informed that due to no foreign body and x-ray and no erythema swelling and tenderness most likely a small ruptured blood vessel/bruise. Case discussed with Dr. Albarran, patient discharge home with follow-up to primary care. - Radiology Data Radiology results: report reviewed, image reviewed Left finger x-ray: No acute dislocations or fractures seen. No radiopaque foreign bodies noted. Disposition Clinical Impression: Finger pain, left Disposition: HOME SELF-CARE Instructions (If sedation given, give patient instructions): Hand Sprain (ED) Additional Instructions: Please return to the Emergency Department if symptoms worsen or any other concerns. Follow-up with primary care as needed. Take Tylenol Motrin as needed for pain control. Avoid digging in the finger as it is likely a small bruised ruptured blood vessel. Is patient prescribed a controlled substance at d/c from ED?: No Referrals: Giana Crowe MD [Primary Care Provider] - 1-2 days Time of Disposition: 13:29
== END 2020-10-08 13:34 | disposition home or self-care (01) ==
LOC: EC 12:17
DX: M79.645 Pain in left finger(s) (principal); J45.909 Unspecified asthma, uncomplicated; K21.9 Gastro-esophageal reflux disease without esophagitis; E07.9 Disorder of thyroid, unspecified; F32.9 Major depressive disorder, single episode, unspecified; F12.90 Cannabis use, unspecified, uncomplicated; Z87.891 Personal history of nicotine dependence; Z90.710 Acquired absence of both cervix and uterus; Z98.51 Tubal ligation status
CPT/HCPCS: 99283